=== PATIENT | male | born 1965 | race Caucasian/White ===

== ENCOUNTER 2024-05-20 10:12 | Emergency (ER) | payer OTHER, SELFPAY ==
--- NOTE | ~2024-05-20 | XR_ITS ---
XR chest 1V portable Ordering provider: Dave Taveras MD History: 58 years Male with . COUGH WITH CP FROM COUGHING X7DAYS,FEVER,BODY ACHES . Comparison: March 16, 2002 FINDINGS: MEDIASTINUM: The cardiac silhouette is slightly enlarged. Prominent claus more on the right side. LUNGS: No infiltrates, effusions or pneumothorax. Prominent bronchovascular markings in the left perihilar and both lower lobes which may indicate bron chitis. Early pneumonia is not excluded. OTHER: No free air under the diaphragm. Degenerative changes with levoscoliosis. IMPRESSION: Prominent bronchovascular markings in the lower lobes and perihilar areas which may indicate bronchit is. Follow-up advised. Prominent both claus. No change from previous examination seen Reviewed, dictated and finalized at location A. ENGER RELATIONS REPRESENTATIVE IMPRESSION: Prominent bronchovascular markings in the lower lobes and perihilar areas which may indicate bronchitis. Follow-up advised. Prominent both claus. No change from previous examination seen
[2024-05-20 10:12] VITALS: BP 155/77; PULSE 90; RESP 18; TEMP 36.6; O2SAT 96
--- NOTE | 2024-05-20 10:23 | ED.URI ---
HPI - URI/Sore Throat General Chief Complaint: Upper Respiratory Infection Stated Complaint: upper respiratory Time Seen by Provider: 05/20/24 10:23 Source: patient History of Present Illness HPI Narrative: 58 years old white male came to the ED with productive cough of greenish sputum, getting worse over the last 4 days, started 1 week ago. Patient is healthy otherwise, does not take medicine at home, denying any history of smoking or history of asthma. He denies any fever or chills or shortness of breath or chest pain. positive ill contact in few days ago. Related Data Allergies Allergy/AdvReac Type Severity Reaction Status Date / Time No Known Allergies Allergy Verified 05/20/24 10:26 Review of Systems Review of Systems: All systems reviewed & are unremarkable except as noted in HPI and below Exam Narrative: General appearance: Well-developed, well-nourished Skin: Normal color Head: Normocephalic, nontraumatic Eyes: Clear conjunctiva ENT: Oropharynx normal, ears normal, nose normal Neck: Supple, nontender Chest and respiratory: Airway patent, no respiratory distress, no accessory muscle use Expiratory rhonchi bilaterally Heart: Regular rate/rhythm Abdomen: Soft, nontender, no organomegaly, quiet bowel sounds Vascular: Normal peripheral pulses, normal capillary refill. Musculoskeletal: Normal range of motion, nontender back Neurologic: Alert and oriented ?3, SCHOOL TRAFFIC GUARD is normal as tested, no gross motor deficit Course Vital Signs Vital signs: Vital Signs Temperature 36.6 C 05/20/24 10:12 Pulse Rate 90 05/20/24 10:12 Respiratory Rate 18 05/20/24 10:12 Blood Pressure 155/77 H 05/20/24 10:12 Pulse Oximetry 96 05/20/24 10:12 Oxygen Delivery Room Air 05/20/24 10:12 Temperature 36.6 C 05/20/24 10:12 Pulse Rate 90 05/20/24 10:12 Respiratory Rate 18 05/20/24 10:12 Blood Pressure 155/77 H 05/20/24 10:12 Pulse Oximetry 96 05/20/24 10:12 Oxygen Delivery Room Air 05/20/24 10:12 MDM - URI/Sore Throat MDM Narrative Medical decision making narrative: patient came to the ED with productive cough of green sputum Lab Data Labs: Lab Results 05/20/24 Range/Units 10:24 Influenza A (RT-PCR) Negative (Negative) Influenza B (RT-PCR) Negative (Negative) RSV (RT-PCR) Negative (Negative) SARS-CoV-2 RNA (RT-PCR) Negative (Negative) Imaging Data Radiologist's impression: Impressions Chest X-Ray 05/20/24 11:10 IMPRESSION: Prominent bronchovascular markings in the lower lobes and perihilar areas which may indicate bronchitis. Follow-up advised. Prominent both claus. No change from previous examination seen Discharge Plan Discharge Clinical Impression: Bronchitis Patient Disposition: Home, Self-Care Condition: Stable Instructions: Antibiotic Form, Acute Bronchitis (ED) Additional Instructions: Return if symptoms are worsening , call your family physician for appointment, take Tylenol as as needed for aches and pain, continue home medications. Patient Language: Upper Sorbian Prescriptions: New doxycycline hyclate 100 mg tablet 100 mg PO BID Qty: 20 0RF prednisone 20 mg tablet 40 mg PO DAILY 5 Days Qty: 10 0RF albuterol sulfate [Ventolin HFA] 90 mcg/actuation HFA aerosol inhaler 2 puff inhalation QID PRN (Reason: shortness of breath or wheezing) Qty: 8.5 0RF Follow-up/Referrals: Jaki,MD Reese [Primary Care Provider] -
[2024-05-20 11:01] LABS: SARS-CoV-2 RNA PCR Negative (Negative)
[2024-05-20 11:10] LABS: Influenza A QL RT-PCR Negative (Negative); Influenza B QL RT-PCR Negative (Negative); RSV RNA, RT-PCR Negative (Negative)
[2024-05-20 11:22] VITALS: BP 148/70; PULSE 82; RESP 18; TEMP 36.7; O2SAT 96
--- OUTSIDE RECORDS SUMMARY | 2024-05-26 18:20 | XMS_ITS | Clinical Summary ---
Author Organization [facility] Address [address] [place] [address]. [place], [place] [address] [place] [address] Care Team Providers Care Frame Runner Name Role Phone Reese Pollack MD Primary Care Provider Allergies No known active allergies Medications citalopram 40 MG tablet Take 40 mg by mouth daily. 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 Gender Identity Not on file Sexual Orientation Not on file Last Filed Vital Signs Vital Sign Reading Time Taken Comments Blood Pressure 116/60 02/18/2020 1:15 PM CDT Pulse 51 02/18/2020 1:15 PM CDT Temperature 36 ??C (96.8 ??F) 02/18/2020 1:15 PM CDT Respiratory Rate 20 02/18/2020 1:15 PM CDT Oxygen Saturation 95% 02/18/2020 1:15 PM CDT Inhaled Oxygen Concentration - - Weight 79.4 kg (175 lb) 02/07/2020 11:09 AM CDT Height 175.3 cm (5' 9 ) 02/07/2020 11:09 AM CDT Body Mass Index 25.84 02/07/2020 11:09 AM CDT Plan of Treatment Health Maintenance Due Date Last Done Comments Annual Physical 12/23/1970 DTaP, Tdap and Td Vaccines (1 - Tdap) 12/23/1986 Hepatitis B Vaccines (1 of 3 - 19+ 3-dose series) 12/23/1986 Zoster Vaccines (1 of 2) 12/23/2017 COVID-19 Vaccine (2023- season) 2024 Influenza Adult (#1) 2024 Colorectal Cancer Screening Colonoscopy (10 Years) 02/17/2030 02/18/2020, 02/18/2020 Hepatitis C Completed 02/06/2020, 01/14, 02/06/2020, Additional history exists Meningococcal Vaccine Aged Out No brian jalil eligible based on patient's age to complete this topic Pneumococcal Vaccine: Pediatrics (0 to 5 Years) and At-Risk Patients (6 to 64 Years) Aged Out No longer eligible based on patient's age to complete this topic RSV Immunizations Under 20 Months Aged Out No longer eligible based on patient's age to complete this topic Procedures Procedure Name Priority Date/Time Associated Diagnosis Comments COLONOSCOPY 02/18/2020 12:37 PM CDT from Last 3 Months or Most Recently Relevant to Health Maintenance Results * COLONOSCOPY (02/18/2020 12:37 PM CDT) Nikolas Payton MD GI PROCEDURE ORDERABLES Final Result from Last 3 Months or Most Recently Relevant to Health Maintenance Insurance [facility] Care Teams Frame Runner Relationship Specialty Start Date End Date Reese Pollack MD [address] [place] [phone] PCP - General FAMILY PRACTICE 02/06/20
--- OUTSIDE RECORDS SUMMARY | 2024-05-26 18:20 | XMS_ITS | Encounter Summary ---
Author Organization [facility] Address [address] [place] [address]. [place], [place] [address] [place] [address] Care Team Providers Care Profile Shaper Operator Name Role Phone Reese Pollack MD Primary Care Provider [phone] Encounter Details Date Type Department Care Team (Latest Contact Info) Description 02/22/2022 Travel Social History Tobacco Use Types Packs/Day Years Used Date Smoking Tobacco: Former Cigarettes Q uit: 01/27/2010 Smokeless Tobacco: Never Comments:Quit 10 years ago Alcohol Use Standard Drinks/Week Comments Yes 0 (1 standard drink = 0.6 oz pur e alcohol) social Sex and Gender Information Value Date Recorded Sex Assigned at Not on file 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 No / Unsure 02/22/2022 5:01 PM CDT documented as of this encounter Plan of Treatment Not on file documented as of this encounter Visit Diagnoses Not on filedocumented in this encounter Care Teams Profile Shaper Operator Relationship Specialty Start Date End Date Reese Pollack MD [address] [place] [phone] PCP - General FAMILY PRACTICE 02/06/20 documented as of this encounter
--- OUTSIDE RECORDS SUMMARY | 2024-05-26 18:20 | XMS_ITS | Encounter Summary ---
Author Organization [facility] Address [address] [place] [address]. [place], [place] [id number] [place] [address] Care Team Providers Care Wood Piler Name Role Phone Reese Pollack MD Primary Care Provider [phone] Encounter Details Date Type Department Care Team (Latest Contact Info) Description 02/22/2022 5:07 PM CDT - 02/22/2022 11:59 PM CDT Hospital Encounter [facility] [address] [facility] [place] [address] Yaniv Grimes, EJSSA [address] [place] [phone] Discharge Disposition: Home or Self Care (Routine Discharge) Social History Tobacco Use Types Packs/Day Years Used Date Smoking Tobacco: Former Cigarettes Q uit: 01/27/2010 Smokeless Tobacco: Never Comments:Quit 10 years ago Alcohol Use Standard Drinks/Week Comments Yes 0 (1 standard drink = 0.6 oz pur e alcohol) social Sex and Gender Information Value Date Recorded Sex Assigned at Not on file 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 No / Unsure 02/22/2022 5:01 PM CDT documented as of this encounter Medications at Time of Discharge citalopram 40 MG tablet Take 40 mg by mouth daily. 01/17/2020 documented as of this encounter Plan of Treatment Not on file documented as of this encounter Procedures Procedure Name Priority Date/Time Associated Diagnosis Comments XR SCOLIOSIS Routine 02/22/2022 5:38 PM CDT Kyphoscoliosis documented in this encounter Results * XR SCOLIOSIS (02/22/2022 5:38 PM CDT) Anatomical Region Laterality Modality Spine Radiographic [place] ging 02/23/2022 9:02 AM CDT Impressions 02/23/2022 9:04 AM CDT IMPRESSION: 1) Thoracolumbar scoliosis is similar to previous study of 07/17/2013. Ordered By: YANIV GRIMES Interpreted By: Byron Manzanares MD, 02/23/2022 9:02 AM Narrative 02/23/2022 9:04 AM CDT Examination: XR SCOLIOSIS Exam time: 02/22/2022 5:38 PM Clinical history: Scoliosis Comparison: 07/17/2013 Technique: Survey AP and lateral views of the thoracolumbar spine Findings: The images demonstrate prominent thoracolumbar scoliosis very similar in appearance to 07/17/2013. There is thoracic scoliosis convex to the right and thoracolumbar scoliosis convex to the left. There is no definite evidence of underlying thoracic or lumbar vertebral body anomaly. No significant paraspinous soft tissue abnormality. No focal pulmonary parenchymal opacity or pleural effusion. Nonobstructive bowel gas pattern. Procedure Note Byron Manzanares MD - 02/23/2022 Examination: XR SCOLIOSIS Exam time: 02/22/2022 5:38 PM Clinical history: Scoliosis Comparison: 07/17/2013 Technique: Survey AP and lateral views of the thoracolumbar spine Findings: The images demonstrate prominent thoracolumbar scoliosis verysimilar in appearance to 07/17/2013. There is thoracic scoliosis convex tothe right and thoracolumbar scoliosis convex to the left. There is nodefinite evidence of underlying thoracic or lumbar vertebral body anomaly.No significant paraspinous soft tissue abnormality. No focal pulmonary parenchymal opacity or pleural effusion. Nonobstructivebowel gas pattern. IMPRESSION: 1) Thoracolumbar scoliosis is similar to previous study of 07/17/2013. Ordered By: YANIV GRIMES Interpreted By: Byron Manzanares MD, 02/23/2022 9:02 AM us [facility] Final Result documented in this encounter Visit Diagnoses Diagnosis Kyphoscoliosis Scoliosis (and kyphoscoliosis), idiopathic documented in this encounter Care Teams Wood Piler Relationship Specialty Start Date End Date Reese Pollack MD [address] [place] [phone] PCP - General FAMILY PRACTICE 02/06/20 documented as of this encounter
--- OUTSIDE RECORDS SUMMARY | 2024-05-26 18:20 | XMS_ITS | Encounter Summary ---
Author Organization [facility] Address [address] [place] [address]. [place], [place] [address] [place] [address] Care Team Providers Care Neuropsychology Director Name Role Phone Reese Pollack MD Primary Care Provider Encounter Details Date Type Department Care Team (Latest Contact Info) Description 02/18/2020 Travel Social History Tobacco Use Types Packs/Day Years Used Date Smoking Tobacco: Former Cigarettes Q uit: 01/27/2010 Smokeless Tobacco: Never Comments:Quit 10 years ago Alcohol Use Standard Drinks/Week Comments Yes 0 (1 standard drink = 0.6 oz pur e alcohol) social Sex and Gender Information Value Date Recorded Sex Assigned at Not on file 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 No / Unsure 02/18/2020 11:00 AM CDT documented as of this encounter Plan of Treatment Not on file documented as of this encounter Visit Diagnoses Not on filedocumented in this encounter Care Teams Neuropsychology Director Relationship Specialty Start Date End Date Reese Pollack MD [address] [place] [phone] PCP - General FAMILY PRACTICE 02/06/20 documented as of this encounter
--- OUTSIDE RECORDS SUMMARY | 2024-05-26 18:20 | XMS_ITS | Encounter Summary ---
Author Organization [facility] Address [address] [place] [address]. [place] [address] [place] [address] Care Team Providers Care Food And Beverage Director Name Role Phone Reese Pollack MD Primary Care Provider [phone]- [phone] Reason for Visit * Auth/Cert Specialty Diagnoses / Procedures Referred By Claudia cee Referred To Contact Diagnoses SCREENING COLONOSCOPY Procedures COLONOSCOPY DIAGNOSTIC WITH/WITHOUT SPECIMEN BRUSH/WASH Referral ID Status Reason Start Date Expiration Date Visits Re quested Visits Authorized [id number] 1 1 Encounter Details Date Type Department Care Team (Late st Contact Info) Description 02/18/2020 12:16 PM CDT - 02/18/2020 12:50 PM CDT Surgery [place] [address] [place] [address] Nikolas Rangel MD [address] [place] [phone] COLONOSCOPY WITH POLYPECTOMY Surgery Details Date/Time Status Location OR Service Patient Class Case Class Case Type Trauma Case? 02/18/2020 12:16 PM Posted [facility] OR Endo Gastroenterology Short Stay/Outpa tient Surgery No Panel 1 Procedure LRB Anes Op Region Wound Class Comments COLONOSCOPY WITH POLYPECTOMY N/A Monitor Anesthesia Care Colon Clean Contaminated Surgeon Surgeon Role Service Panel Nikolas Rangel MD Primary Gastroenterology 1 documented in this encounter Social History Tobacco Use Types Packs/Day Years Used Date Smoking Tobacco: Former Cigarettes Q uit: 01/27/2010 Smokeless Tobacco: Never Comments:Quit 10 years ago Alcohol Use Standard Drinks/Week Comments Yes 0 (1 standard drink = 0.6 oz pur e alcohol) social Sex and Gender Information Value Date Recorded Sex Assigned at Not on file 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 No / Unsure 02/18/2020 11:00 AM CDT documented as of this encounter Last Filed Vital Signs Vital Sign Reading Time Taken Comments Blood Pressure 110/67 02/18/2020 12:45 PM CDT Pulse 63 02/18/2020 12:45 PM CDT Temperature 36 ??C (96.8 ??F) 02/18/2020 12:45 PM CDT Respiratory Rate 20 02/18/2020 12:45 PM CDT Oxygen Saturation 97% 02/18/2020 12:45 PM CDT Inhaled Oxygen Concentration - - Weight 79.4 kg (175 lb) 02/07/2020 11:09 AM CDT Height 175.3 cm (5' 9 ) 02/07/2020 11:09 AM CDT Body Mass Index 25.84 02/07/2020 11:09 AM CDT documented in this encounter Discharge Instructions * Attachments The following attachments cannot be sent through Care Everywhere. * Colonoscopy Discharge Instructions (Liberian) * Moderate Sedation in Adults Discharge Instructions (Liberian) documented in this encounter Medications at Time of Discharge citalopram 40 MG tablet Take 40 mg by mouth daily. 01/17/2020 documented as of this encounter Plan of Treatment Not on file documented as of this encounter Procedures Procedure Name Priority Date/Time Associated Diagnosis Comments COLONOSCOPY 02/18/2020 12:37 PM CDT COLONOSCOPY DIAGNOSTIC WITH/WITHOUT SPECIMEN BRUSH/WASH 02/18/2020 12:14 PM CDT SCREENING COLONOSCOPY PATHOLOGY Routine 02/18/2020 12:00 AM CDT documented in this encounter Results * COLONOSCOPY (02/18/2020 12:37 PM CDT) us Nikolas Rangel MD GI PROCEDURE ORDERABLES Final Result * Pathology (02/18/2020 12:00 AM CDT) PATHOLOGY [facility] ? Department of Laboratory Medicine ?[address] ?[place] [address] ? , extension [phone] ? Pathology Report ? Surgical Pathology Report Name: ADIEL OTERO ? Specimen #: [id number] Age: 8 1965 (Age: 54) ?Location: [facility] Sex: M ?Procedure Date: 02/18/2020 Hospital #: [id number] ?Date Received: 02/19/2020 Date Reported: 02/20/2020 Provider: INKOLAS RANGEL MD Source: A: Colon, ascending, polyp B: Colon, descending, polyp Clinical History: Screening colonoscopy. Gross Description: Received in two parts: A) Received in formalin, labeled with a patient label and as ascending colon polyp is a 0.1-0.2 cm piece of hebert tissue which is entirely submitted in cassette A1. B) Received in formalin, labeled with a patient label and as descending colon polyp is a 0.3 cm piece of hebert tissue which is entirely submitted in cassette B1. FINAL DIAGNOSIS: A) COLON, ASCENDING POLYP, BIOPSY: ? - POLYPOID FRAGMENT OF BENIGN COLONIC MUCOSA. B) COLON, DESCENDING POLYP, BIOPSY: ? - TUBULAR ADENOMA. Electronicall y Signed Out ? Wiliam Castillo M.D. [facility] Tissue specimen (specimen) COLON STRUCTURE / Unknown 02/18/2020 12:30 PM CDT Tissue specimen (specimen) COLON STRUCTURE / Unknown 02/18/2020 12:32 PM CDT us Nikolas Rangel MD PATHOLOGY/CYTOLOGY ORDERABLES Final Result [facility] [address] [place] [address], [id number] documented in this encounter Visit Diagnoses Not on filedocumented in this encounter Administered Medications Inactive Administered Medications - up to 3 most recent administrations Medication Order MAR Action Action Date Dose Rate Site lactated ringers infusion at 10 mL/hr, Intravenous, Continuous, Starting on 02/18/20 at 1130, Until Tu02/18/20 at 1527, Infuse at TKO rate, Pre-Op New Bag 02/18/2020 11:09 AM CDT 10 mL/hr documented in this encounter Active and Recently Administered Medications Times are shown in CDT. Continuous Medication Order 02/16/2020 02/17/2020 02/18/2020 lactated ringers infusion at 10 mL/hr, Intravenous, Continuous, Starting on 02/18/20 at 1130, Until 02/18/20 at 1527, Infuse at TKO rate, Pre-Op 1109 (New Bag - Prov ider: Tobias Collazo RN)1240 (Anesthesia Volume Adjustment - Provider: sIabel Ray CRNA)1315 (Infusion Stop Time - Provider: Angela Ballard RN) documented in this encounter Care Teams Food And Beverage Director Relationship Specialty Start Date End Date Reese Pollack MD [address] [place] [phone] PCP - General FAMILY PRACTICE 02/06/20 documented as of this encounter
--- OUTSIDE RECORDS SUMMARY | 2024-05-26 18:21 | XMS_ITS | Encounter Summary ---
Author Organization [facility] Address [address] [place] [address]. 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
--- OUTSIDE RECORDS SUMMARY | 2024-05-26 18:21 | XMS_ITS | Encounter Summary ---
Author Organization [facility] Address [address] [place] [address]. 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 No / Unsure 02/06/2020 6:56 AM CDT documented as of this encounter Plan of Treatment Not on file documented as of this encounter Visit Diagnoses Not on filedocumented in this encounter Care Teams Kindergarten Prep Teacher Relationship Specialty Start Date End Date Reese Pollack MD [address] [place] [phone] PCP - General FAMILY PRACTICE 02/06/20 documented as of this encounter
--- OUTSIDE RECORDS SUMMARY | 2024-05-26 18:21 | XMS_ITS | Encounter Summary ---
Author Organization [facility] Address [address] [place] [address]. [place], [place] [phone] [place] [address] Care Team Providers Care Legal Records Clerk Name Role Phone Reese Pollack MD Primary Care Provider Encounter Details Date Type Department Care Team (Latest Contact Info) Description 02/15/2020 Travel Social History Tobacco Use Types Packs/Day Years Used Date Smoking Tobacco: Former Cigarettes Q uit: 01/27/2010 Smokeless Tobacco: Never Comments:Quit 10 years ago Alcohol Use Standard Drinks/Week Comments Yes 0 (1 standard drink = 0.6 oz pur e alcohol) social Sex and Gender Information Value Date Recorded Sex Assigned at Not on file 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 No / Unsure 02/15/2020 9:22 AM CDT documented as of this encounter Plan of Treatment Not on file documented as of this encounter Visit Diagnoses Not on filedocumented in this encounter Additional Health Concerns Infection Onset Date Last Indicated Resolved Time COVID-19 Rule Out 02/15/2020 02/15/2020 02/17/2020 6:00 AM CDT documented as of this encounter Care Teams Legal Records Clerk Relationship Specialty Start Date End Date Reese Pollack MD [address] [place] [phone] PCP - General FAMILY PRACTICE 02/06/20 documented as of this encounter
--- OUTSIDE RECORDS SUMMARY | 2024-05-26 18:21 | XMS_ITS | Encounter Summary ---
Author Organization [facility] Address [facility] [place] [address] [place] [address] Care Team Providers Care Junior Project Coordinator Name Role Phone Unavailable Primary Care Provider Unavailabl e Encounter Details Date Type Department Care Team (Late st Contact Info) Description 05/10/[address] 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
--- OUTSIDE RECORDS SUMMARY | 2024-05-26 18:21 | XMS_ITS | Encounter Summary ---
Author Organization [facility] Address [address] [place] [address]. [place] [address] [place] [address] Care Team Providers Care Photogrammetric Technician Name Role Phone Reese Pollack MD Primary Care Provider [phone] Reason for Visit * Auth/Cert Specialty Diagnoses / Procedures Referred By Claudia cee Referred To Contact Diagnoses SCREENING COLONOSCOPY Procedures COLONOSCOPY DIAGNOSTIC WITH/WITHOUT SPECIMEN BRUSH/WASH Referral ID Status Reason Start Date Expiration Date Visits Re quested Visits Authorized [id number] 1 1 Encounter Details Date Type Department Care Team (Late st Contact Info) Description 02/18/2020 12:19 PM CDT Anesthesia Event [facility] [address] [place] [address] [place] [address] Billy Dhaliwal MD [address] [place], [place] [id number] Isabel Ray, ADDICTION COUNSELOR [address] [place] [address] Anesthesia Record Procedure Summary Procedure Name Responsible Anesthesiologist Anesthesia Start Time Anesthesia Stop Time COLONOSCOPY WITH POLYPECTOMY (Colon) Billy Dhaliwal MD 02/18/20 1219 02/18/20 1245 Events Date Time Event Comment 02/18/2020 1210 1219 An Start Patient ID and consent checked and patient reassessed. 1219 An Start Data 1221 Face Mask Applied 1223 Anesthesia Ready 1241 an stop data 1245 Post Anesthetic Care Handoff I completed my handoff to the receiving nurse during which we: 1. Identified the patient 2. Identified the responsible provider 3. Reviewed the pertinent medical history 4. Discussed the surgical course 5. Reviewed intra-op anesthesia management and issues during anesthesia 6. Set expectations for post-procedure period 7. Allowed opportunity for questions and acknowledgement of understanding. 1245 An Stop Meds Name Total propofol (DIPRIVAN) 500 mg/50 mL injecti on 100 mg propofol (DIPRIVAN) 500 mg/50 mL injecti on 91.71 mg lactated ringers infusion 800 mL * Agents Name N2O Ancillary O2 * Blood No blood administrations on file. Lines, Drains, and Airways Type Details Placement Removal Peripheral IV Placement Date: 11/01; Placement Time: 1108; Placed Outside of This Facility?: No; Size: 20 G; Orientation: Right; Location: Hand; Site Prep: Chlorhexidine; Local Anesthetic: None; Insertion attempts: 1; Ultrasound-guided Placement?: No; Patient Tolerance: Tolerated well; Removal Date: 02/18/20; Removal Time: 1315; Removal Reason: Patient Discharged 02/18/20 1108 by Tobias Collazo RN 02/18/20 1315 by Angela Ortega RN documented in this encounter Social History Tobacco Use Types Packs/Day Years Used Date Smoking Tobacco: Former Cigarettes Q uit: 01/27/2010 Smokeless Tobacco: Never Comments:Quit 10 years ago Alcohol Use Standard Drinks/Week Comments Yes 0 (1 standard drink = 0.6 oz pur e alcohol) social Sex and Gender Information Value Date Recorded Sex Assigned at Not on file 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 No / Unsure 02/18/2020 11:00 AM CDT documented as of this encounter Progress Notes * Billy Dhaliwal MD - 02/18/2020 1:13 PM CDT Addendum created 02/18/20 1313 by Billy Dhaliwal MD Attestation recorded in Intraprocedure, Intraprocedure Attestations filed documented in this encounter OR Notes * Anesthesia Postprocedure Evaluation - Billy Dhaliwal MD - 02/18/2020 1:04 PM CDT Anesthesia Post-op Note [facility] Procedure(s): COLONOSCOPY WITH POLYPECTOMY (N/A ) Anesthesia type: MAC Vitals: 02/18/20 1245 BP: 110/67 Vitals: 02/18/20 1245 Pulse: 63 Vitals: 02/18/20 1245 Resp: 20 Vitals: 02/18/20 1245 Temp: 36 ??C Vitals: 02/18/20 1245 SpO2: 97% Patient Location: Phase II/Outpatient Level of Consciousness: awake, alert and oriented Pain Management: adequate analgesia Airway Patency: patent Respiratory Status: spontaneous ventilation and acceptable Cardiovascular Status: acceptable, stable and hemodynamically stable Post-Op Nausea: none Postoperative Hydration: euvolemic Complications: no anesthesia complication * Anesthesia Preprocedure Evaluation - Billy Dhaliwal MD - 02/14/2020 11:44 AM CDT Anesthesia ROS/MED History Reviewed: Patient summary , Family history anesthesia, Anesthesia history , Medications Pre-Anesthetic State: alert, awake and responds appropriately Pulmonary neg pulmonary ROS Cardiovascular neg cardio ROS Exercise tolerance:good Neuro/Psych (+) psychiatric problem, (anxiety) GI/Hepatic/Renal neg GI/hepatic/renal ROS Endo/Other neg endo/other ROS Physical Evaluation Airway Mallampati: II TM Distance: >3 FB Neck ROM: normal Comment: Full grant Dental No notable dental history Pulmonary Pulmonary exam normal Breath sounds clear to auscultation Cardiovascular Rhythm: regular Rate: normal Cardiovascular exam normal Anesthesia Plan ASA 2 Intravenous Induction Anesthesia type: MAC Informed Consent Anesthetic plan and risks discussed with patient of whom consent was obtained. . documented in this encounter Plan of Treatment Not on file documented as of this encounter Visit Diagnoses Not on filedocumented in this encounter Administered Medications Inactive Administered Medications - up to 3 most recent administrations Medication Order MAR Action Action Date Dose Rate Site propofol (DIPRIVAN) IV bolus PRN, Starting on Mon02/18/20 at 1222, Until Mon02/18/20 at 1245, Anesthesia Intra-Op Given 02/18/2020 12:23 PM CDT 40 mg Given 02/18/2020 12:22 PM CDT 60 mg propofol (DIPRIVAN) IV bolus Intravenous, Continuous PRN, Starting on Mon02/18/20 at 1222, Until Mon02/18/20 at 1245, Anesthesia Intra-Op Rate/Dose Change 02/18/2020 12:28 PM CDT 75 mcg/kg/min 35.7 mL/hr Rate/Dose Change 02/18/2020 12:25 PM CDT 85 mcg/kg/min 40. 5 mL/hr New Bag 02/18/2020 12:22 PM CDT 100 mcg/kg/min 47.6 mL/ hr documented in this encounter Care Teams Photogrammetric Technician Relationship Specialty Start Date End Date Reese Pollack MD [address] [place] [phone] PCP - General FAMILY PRACTICE 02/06/20 documented as of this encounter
--- OUTSIDE RECORDS SUMMARY | 2024-05-26 18:21 | XMS_ITS | Encounter Summary ---
Author Organization [facility] Address [address] [place] [address]. [place] [address] [place] [address] Care Team Providers Care Undercover Agent Name Role Phone Reese Pollack MD Primary Care Provider [phone] Encounter Details Date Type Department Care Team (Late st Contact Info) Description 02/15/[address] 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 No / Unsure 02/07/2020 11:09 AM CDT documented as of this encounter Plan of Treatment Not on file documented as of this encounter Results * PRE-SURGICAL/PRE-PROCEDURE CORONAVIRUS (COVID 19) (02/15/2020 9:48 AM CDT) CORONAVIRUS SARS COV 2 PCR (RESP) NOT DETECTED NOT DETECTED 02/17/2020 6:00 AM CDT [facility] Comment: A Not Detected (negative) test result for this test means that SARS- CoV-2 RNA was not present in the specimen above the limit of detection. A negative result does not rule out the possibility of COVID-19 and should not be used as the sole basis for treatment or patient management decisions. ??If COVID-19 is still suspected, based on exposure history together with other clinical findings, re-testing should be considered in consultation with public health authorities. Laboratory test results should always be considered in the context of clinical observations and epidemiological data in making a final diagnosis and patient management decisions. Please review the Fact Sheets and FDA authorized labeling available for health care providers and patients using the following websites: https://www.[employer]/home/Covid-19/HCP/[facility]/fact- sheet.html https://www.[employer]/home/Covid-19/Patients/ [facility]/fact-sheet.html This test has been authorized by the FDA under an Emergency Use Authorization (EUA) for use by authorized laboratories. Due to the current public health emergency, [facility] is receiving a high volume of samples from a wide variety of swabs and media for COVID-19 testing. In order to serve patients during this public health crisis, samples from appropriate clinical sources are being tested. Negative test results derived from specimens received in non-commercially manufactured viral collection and transport media, or in media and sample collection kits not yet authorized by FDA for COVID-19 testing should be cautiously evaluated and the patient potentially subjected to extra precautions such as additional clinical monitoring, including collection of an additional specimen. Methodology: ??Nucleic Acid Amplification Test (NAAT) includes PCR or TMA Additional information about COVID-19 can be found at the [facility] website: www.[employer]/Covid19. Test performed at [facility] [address] ??[id number] Director: JULY VANCE DO,MPH FIRST TEST YES 02/15/2020 9:34 AM CDT [facility] EMPLOYED IN HEALTHCARE NO 02/15/2020 9:34 AM CDT [facility] SYMPTOMATIC DEFINED BY CDC NO 02/15/2020 9:34 AM CDT [facility] DATE OF SYMPTOM ONSET UNKNOWN 02/15/2020 9:52 AM CDT [facility] HOSPITALIZATION STATUS NO 02/15/2020 9:34 AM CDT [facility] PATIENT IN ICU NO 02/15/2020 9:34 AM CDT [facility] NO 02/15/2020 9:34 AM CDT [facility] NOT 02/15/2020 9:52 AM CDT [facility] PATIENT'S RACE WHITE OR 02/15/2020 9:34 AM CDT [facility] ETHNICITY NONHISPANIC 02/15/2020 9:34 AM CDT [facility] SOURCE (QST) NASOPHARYNGEAL SWAB 02/15/2020 9:34 AM CDT [facility] NASOPHARYNGEAL SWAB / Unknown 02/15/2020 9:48 AM CDT us Nikolas Payton MD MICROBIOLOGY - GENERAL ORDERA BLES Final Result [facility] [address] [place] [address], [facility] [address] documented in this encounter Visit Diagnoses Diagnosis Pre-operative laboratory examination- Primary Pre-procedural laboratory examination documented in this encounter Additional Health Concerns Infection Onset Date Last Indicated Resolved Time COVID-19 Rule Out 02/15/2020 02/15/2020 02/17/2020 6:00 AM CDT documented as of this encounter Care Teams Undercover Agent Relationship Specialty Start Date End Date Reese Pollack MD [address] [place] [phone] PCP - General FAMILY PRACTICE 02/06/20 documented as of this encounter
--- OUTSIDE RECORDS SUMMARY | 2024-05-26 18:21 | XMS_ITS | Encounter Summary ---
Author Organization [facility] Address [address] [place] [address]. [id number] Care Team Providers Care Motor And Generator Brush Maker Name Role Phone Reese Pollack MD Primary Care Provider [phone] Reason for Visit * Auth/Cert Specialty Diagnoses / Procedures Referred By Claudia cee Referred To Contact Diagnoses SCREENING COLONOSCOPY Procedures COLONOSCOPY DIAGNOSTIC WITH/WITHOUT SPECIMEN BRUSH/WASH Referral ID Status Reason Start Date Expiration Date Visits Re quested Visits Authorized [id number] 1 1 Encounter Details Date Type Department Care Team (Late st Contact Info) Description 02/18/2020 10:53 AM CDT - 02/18/2020 1:[address] PM [address] Hospital En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 * Colonoscopy Discharge Instructions (Malaysian) * Moderate Sedation in Adults Discharge Instructions (Malaysian) documented in this encounter Medications at Time [...] ? Department of Laboratory Medicine ?[address] ? [address] ? , extension [phone] ? Pathology Report ? Surgical Pathology Report Name: OTERO ADIEL Lubin ? Specimen #: [id number] Age: 8 1965 (Age: 54) ?[facility] ?Procedure Date: 02/18/2020 Hospital #: [id number] ?Date Received: 02/19/2020 Date Reported: 02/20/2020 Provider: NIKOLAS RANGEL MD Source: A: Colon, ascending, polyp [...] y Signed Out ? Wiliam Castillo M.D. [facility] Tissue specimen (specimen) COLON STRUCTURE / Unknown 02/18/2020 12:30 PM CDT Tissue specimen (specimen) COLON STRUCTURE / Unknown 02/18/2020 12:32 PM CDT Nikolas Rangel MD PATHOLOGY/CYTOLOGY ORDERABLES Final Result [facility] [address] [place] [address], [id number] documented in this encounter Visit Diagnoses Not on filedocumented in this encounter Administered Medications Inactive Administered Medications - up to 3 most recent administrations Medication Order MAR Action Action Date Dose Rate Site lactated ringers infusion at 10 mL/hr, Intravenous, Continuous, Starting on Mon02/18/20 at 1130, Until Tu02/18/20 at 1527, Infuse [...] 1109 (New Bag - Prov ider: Tobias Collazo, RN)1240 (Anesthesia Volume Adjustment - Provider: Isabel Ray CRNA)1315 (Infusion Stop Time - Provider: Angela Ballard, KAVITA) documented in this encounter Care Teams Motor And Generator Brush Maker Relationship Specialty Start Date End Date Reese Pollack MD [address] [place] [phone] PCP - General FAMILY PRACTICE 02/06/20 documented as of this encounter
--- OUTSIDE RECORDS SUMMARY | 2024-05-26 18:21 | XMS_ITS | Encounter Summary ---
Author Organization [facility] Address [address] [place] [address]. 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
--- OUTSIDE RECORDS SUMMARY | 2024-05-26 18:21 | XMS_ITS | Encounter Summary ---
Author Organization [facility] Address [address] [place] [address]. 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
--- OUTSIDE RECORDS SUMMARY | 2024-05-26 18:21 | XMS_ITS | Encounter Summary ---
Author Organization [facility] Address [address] [place] [address]. [place] [address] [place] [address] Care Team Providers Care Fermentation Scientist Name Role Phone Unavailable Primary Care Provider Unavailabl e Encounter Details Date Type Department Care Team (Late st Contact Info) Description 07/17/[address] 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
--- OUTSIDE RECORDS SUMMARY | 2024-05-26 18:21 | XMS_ITS | Encounter Summary ---
Author Organization [facility] Address [address] [place] [address]. 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 No / Unsure 02/07/2020 11:09 AM CDT documented as of this encounter Plan of Treatment Not on file documented as of this encounter Results * (ABNORMAL) MISCELLANEOUS LAB TEST (02/06/2020 7:48 AM CDT) TEST NAME: [id number] LIVER FIBROSIS FIBROSURE 02/06/2020 7:53 AM CDT [facility] SPECIMEN TYPE SERUM 02/06/2020 7:53 AM CDT [facility] TEST RESULT: Flexitest 1(A) 02/14/2020 3:38 PM CDT [facility] KIMI FORTE Comment: Flexitest 1 TESTS TYCELOP-IRUUR-BHL RANGE Fibrosis Score ? 0.37 ?? Fibrosis Stage ?F1-F2 ?? Fibrosis Interpretation ?REPORT ?? minimal fibrosis Fibro Test Score (f) ??Metavir Score f>=0 and f<=0.21 : F0 (no fibrosis) f>0.21 and f<=0.27 : F0-F1 (no fibrosis) f>0.27 and f<=0.31 : F1 (minimal fibrosis) f>0.31 and f<=0.48 : F1-F2 (minimal fibrosis) f>0.48 and f<=0.58 : F2 (moderate fibrosis) f>0.58 and f<=0.72 : F3 (advanced fibrosis) f>0.72 and f<=0.74 : F3-F4 (advanced fibrosis) f>0.74 and f<=1.00 : F4 (severe fibrosis) Necroinflammat Act Score ? 0.76 ?? Necroinflammat Act Grade ? A3 ?? Necroinflammat Interp ?REPORT ?? severe activity ActiTest Score (a) ?Metavir Score a>=0 and a<=0.17 : A0 (no activity) a>0.17 and a<=0.29 : A0-A1 (no activity) a>0.29 and a<=0.36 : A1 (minimal activity) a>0.36 and a<=0.52 : A1-A2 (minimal activity) a>0.52 and a<=0.60 : A2 (significant activity) a>0.60 and a<=0.62 : A2-A3 (significant activity) a>0.62 and a<=1.00 : A3 (severe activity) Wpdeh-4-Vvdyyabxrjzao ? 163 ?? mg/dL 106-279 Haptoglobin ?39 L mg/dL 43-212 Apolipoprotein A1 ? 138 ?? mg/dL 94-176 Total Bilirubin ? 0.5 ?? mg/dL 0.2-1.2 GGT ?53 ?? U/L 3-95 ALT ? 157 H U/L 9-46 Reference ID ?[id number] ?? Footnote ? REPORT ?? The reliability of results is dependent on compliance with the preanalytical and analytical conditions recommended by [employer]. The tests have to be deferred for: acute hemolysis, acute hepatitis, acute inflammation, extra hepatic cholestasis. The advice of a specialist should be sought for interpretation in chronic hemolysis and Gilbert's syndrome. The test interpretation is not validated in liver transplant patients. Isolated extreme values of one of the components should lead to caution in interpreting the results. In case of discordance between a biopsy result and a test, it is recommended to seek the advice of a specialist. The causes of these discordances could be due to a flaw of the test or to a flaw in the biopsy: i.e. a liver biopsy has a 33% variability rate for one fibrosis stage. FibroTest is interpretable for chronic hepatitis B and C, alcoholic and non alcoholic steatosis. ActiTest is interpretable for chronic hepatitis B and C. The performance characteristics have been determined by [employer], [place]. It has not been cleared or approved by the U.S. Food and Drug Administration. Performance characteristics refer to the analytical performance of the test. [employer], the associated logo, CIHI and all associated [employer] bishop are the registered trademarks of [employer]. All third libertarian bishop - (R) and (TM) - are the property of their respective owners. (C) 1445-3602 [employer]. All rights reserved. Test performed by [employer] ? [id number], ? [place] [address] ? Ground Instructor Advanced: Crystal Boston MD,PHD,OZZIE Test Reported by [facility] [employer] [place], [address] [place] [address] Ward Schwartz M.D., Ph.D., Director of Laboratories , [place] [id number] 02/06/2020 7:48 AM CDT Jonathan Owens MD LABORATORY Final Result Performing Organization Address City/State/[facility] de Phone Number [facility] [address] [address], [place] [phone] [facility] [address] [place] [address], [place] [phone] * HEP C VIRAL RNA GENOTYPE, LIPA (02/06/2020 7:48 AM CDT) [facility] HEPATITIS C VIRAL RNA GENOTYPE 2 02/12/2020 9:38 PM CDT [facility] RIVERMIRNA ANTOINE Comment: The method used in this test is RT-PCR and reverse hybridization (Line Probe) of the 5' UTR and core region of the HCV genome. The analytical performance characteristics of this assay have been determined by [employer] [place], [place]. ??The modifications have not been cleared or approved by the FDA. ??This assay has been validated pursuant to the CLIA regulations and is used for clinical purposes. For additional information, please refer to http://education.Chomp/faq/HCVGenotypin (This link is being provided for informational/ educational purposes only.) Test Performed by [employer] [facility], [employer] [place], [address] [place] [address] Ward Schwartz M.D., Ph.D., Director of Laboratories , CLIA [id number] 02/06/2020 7:48 AM CDT Jonathan Owens MD LABORATORY Final Result Performing Organization Address City/[facility]/ZIP Co de Phone Number [facility] [place] [phone] [place], [place] , [place] [phone] * (ABNORMAL) HEPATITIS B SURFACE ANTIBODY (02/06/2020 7:48 AM CDT) HEP B SURFACE AB <3.1(L) >9.9 MIU/ML 02/06/2020 8:29 PM CDT [facility] Comment:INDIVIDUAL IS CONSID ERED NOT IMMUNE TO HBV INFECTION. 02/06/2020 7:48 AM CDT Jonathan Owens MD LABORATORY Final Result Performing Organization Address City/[facility]/ZIP Co de Phone Number [facility] [address] [place], [place] [address], [phone] * HEPATITIS A ANTIBODY (02/06/2020 7:48 AM CDT) HEPATITIS A TOTAL AB Nonreactive Nonreactive 02/09/2020 8:05 PM CDT [facility] [place] Comment: For additional information, please refer to https://education.Dots ,LLC/faq/HYE787 (This link is being provided for informational/ educational purposes only.) COMMENT REPORT 02/09/2020 8:05 PM CDT [facility] [place] Comment: Not indicated Test Performed by [facility]ema Parmar, [employer] [facility], [address] [place] [address] Ward Schwartz M.D., Ph.D., Director of Laboratories , CLIA [id number] 02/06/2020 7:48 AM CDT Jonathan Owens MD LABORATORY Final Result Performing Organization Address [facility] Co de Phone Number [facility] [address] [place], [place] , [place] [phone] * CRYOGLOBULIN QUALITATIVE (02/06/2020 7:48 AM CDT) CRYOGLOBULIN QL S/P/B Negative Negative 02/13/2020 1:35 AM CDT [facility] DAVONFRANCI FORTE Comment: The Cryocrit is primarily intended for following a patient with previously defined and quantitated cryoglobulins. The cryocrit may consist of cryoglobulins, fibrins, complement, or mixtures of these. If not previously characterized, consider ordering test code 82288, Cryoglobulin Screen with Reflex to Cryoglobulin Profile, Serum. Test Performed by [employer], [employer], [address] [place] [address] Ward Schwartz M.D., Ph.D., Director of Laboratories , CLIA [id number] % CRYOCRIT END OF REPORT 02/13/2020 1:35 AM CDT [facility] DAVONFRANCI SOTOSusi 02/06/2020 7:48 AM CDT Jonathan Owens MD LABORATORY Final Result Performing Organization Address City/[facility]/ZIP Co de Phone Number [facility] [address] [place], [place] , [place] [phone] * IRON SATURATION PNL (FE/TIBC/SAT) (02/06/2020 7:48 AM CDT) IRON 144 65 - 175 MCG/DL 02/06/2020 8:59 AM CDT [facility] IRON BINDING CAPACITY 328 250 - 450 MCG/DL 02/06/2020 8:59 AM CDT [facility] IRON SATURATION 44 % 0 8:59 AM CDT [facility] Comment:REFERENCE RANGE NOT ESTABLISHED 02/06/2020 7:48 AM CDT Jonathan Owens MD LABORATORY Final Result [facility] [address] [place] [address], [place] [phone] * PRQJI-4-CPULLZIIYIC TOTAL (02/06/2020 7:48 AM CDT) O-0-DEEVOZCVTCK QUANT 132 83 - 199 mg/dL 02/13/2020 12:30 PM CDT [facility] VIRGINIE ANTOINE Comment: Test Performed by [employer], [employer], [address] [place] [address] Ward Schwartz M.D., Ph.D., Director of Laboratories , [facility] [id number] 02/06/2020 7:48 AM CDT Jonathan Owens MD LABORATORY Final Result Performing Organization Address [facility] Co de Phone Number [facility] [address] [address], [place] [phone] * ANTINUCLEAR ANTIBODY WI RFX (02/06/2020 7:48 AM CDT) JARROD 0.3 02/07/2020 11:48 AM CDT [facility] Comment: NEGATIVE: <0.7 RATIO JARROD PROFILE AND TITER NOT PERFORMED THE JARROD SCREEN TEST FOR THE FOLLOWING ANTIBODIES: SSA1 (RO), SSB1 (LA), MARIA, SCL70, JO1, CENTROMERE, CUSTOMER TRAINER HISTONE MUST BE ORDERED SEPARATELY DNA (DS) ANTIBODY <0.8 IU/ML 020 11:48 AM CDT [facility] Comment: NEGATIVE: <10 IU/mL EQUIVOCAL: 10 to 15 IU/mL POSITIVE: >15 IU/mL THIS QUANTITATIVE ASSAY IS CALIBRATED TO THE [employer]'S WO/80 STANDARD. THE LEVEL OF dsDNA AUTOANTIBODY GERERALLY CORRELATES WITH THE LEVEL OF DISEASE ACTIVITY IN SYSTEMIC LUPUS ERYTHMATOSUS 02/06/2020 7:48 AM CDT us Jonathan Owens MD LABORATORY Final Result Performing Organization Address City/[facility]/ZIP Co de Phone Number [facility] [address] [place] [address], [place] [phone] * FERRITIN (02/06/2020 7:48 AM CDT) FERRITIN 257.9 26 - 388 NG/ML 02/06/2020 8:31 AM CDT [facility] 02/06/2020 7:48 AM CDT us Jonathan Owens MD LABORATORY Final Result Performing Organization Address [facility] Co de Phone Number [facility] [address] [place] [address], * THYROID STIM HORMONE, TSH (02/06/2020 7:48 AM CDT) TSH 1.590 0.358 - 3.740 uIU/ML 02/06/2020 8:31 AM CDT [facility] 02/06/2020 7:48 AM CDT us Jonathan Owens MD LABORATORY Final Result Performing Organization Address [facility] Co de Phone Number [facility] [address] [place] [phone], * PARTIAL THROMBOPLASTIN TIME,PTT (02/06/2020 7:48 AM CDT) PTT 34.3 25.1 - 36.5 SEC 02/06/2020 8:23 AM CDT [facility] Comment:THERAPEUTIC RANGE: 4 6.2-77.0 SEC 02/06/2020 7:48 AM CDT us Jonathan Owens MD LABORATORY Final Result Performing Organization Address City/[facility]/ZIP Co de Phone Number [facility] [address] [place] [address], [place] [phone] * PROTIME/INR, VENOUS (02/06/2020 7:48 AM CDT) Pathologist [facility] PROTIME 11.5 9.4 - 12.5 SEC 02/06/2020 8:23 AM CDT [facility] INR 1.0 0.9 - 1.1 02/06/2020 8:23 AM CDT [facility] 02/06/2020 7:48 AM CDT us Jonathan Owens MD LABORATORY Final Result Performing Organization Address [facility] Co de Phone Number [facility] [address] [place] [address], [place] [phone] * HIV 1 ANTIGEN(S), WITH HIV-1 AND HIV-2 ANTIBODIES (02/06/2020 7:48 AM CDT) [facility] HIV 1/2 AB+ HIV1 P24 AG NON-REACTI VE NON-REACTI VE 02/06/2020 2:30 PM CDT [facility] Comment:HIV 1 p24 Ag and HIV 1/ HIV 2 Ab not detected. 02/06/2020 7:48 AM CDT us Jonathan Owens MD LABORATORY Final Result Performing Organization Address City/[facility]/ZIP Co de Phone Number [facility] [address] [place] [address], [place] [phone] * (ABNORMAL) HCV RNA,PCR QUANT. (02/06/2020 7:48 AM CDT) [facility] HEPATITIS C RNA PCR QNT 2,280,000 (H) IU/mL 02/10/2020 5:35 PM CDT [facility] NANCY FORTE HEP C RNA PCR QNT LOG 6.36(H) log IU/mL 02/10/2020 5:35 PM CDT [facility] NANCY FORTE Comment: Reference Range: ?Not Detected ? IU/mL ?Not Detected ?? Log IU/mL This test was performed using Real-Time Polymerase Chain Reaction. Reportable range is 15 IU/mL to 100,000,000 IU/mL (1.18 Log IU/mL to 8.00 Log IU/mL). For additional information please refer to http://education.Dots ,LLC/faq/DRI87m1 (This link is being provided for informational/ educational purposes only.) The analytical performance characteristics of this assay have been determined by [employer] [place], [place]. ??The modifications have not been cleared or approved by the FDA. ??This assay has been validated pursuant to the CLIA regulations and is used for clinical purposes. Test Performed by [facility], [employer], [address] [place] [address] Ward Schwartz M.D., Ph.D., Director of Laboratories , CLIA [id number] 02/06/2020 7:48 AM CDT us Jonathan Owens MD LABORATORY Final Result [facility] [employer] [facility] , * HEPATITIS B SURFACE AG, EIA (02/06/2020 7:48 AM CDT) Pathologist [facility] HEPATITIS B SURFACE AG NON-REACTI VE NON-REACTI VE 02/06/2020 8:29 PM CDT [facility] Comment:HBsAg NOT DETECTED. 02/06/2020 7:48 AM CDT Jonathan Owens MD LABORATORY Final Result [facility] [address] [place] [address], [phone] * (ABNORMAL) COMPREHENSIVE METABOLIC PANEL (02/06/2020 7:48 AM CDT) SODIUM S/P/B 139 136 - 145 MMOL/L 02/06/2020 8:31 AM CDT [facility] POTASSIUM S/P/B 4.2 3.5 - 5.1 MMOL/L 02/06/2020 8:31 AM CDT [facility] CHLORIDE S/P/B 103 98 - 107 MMOL/L 02/06/2020 8:31 AM CDT [facility] CO2 30.6 21.0 - 32.0 MMOL/L 02/06/2020 8:31 AM CDT [facility] GLUCOSE 95 70 - 99 MG/DL 02/06/2020 8:31 AM CDT [facility] Comment: FASTING GLUCOSE 100 TO 125 MG/DL IS CONSISTENT WITH IMPAIRED FASTING GLUCOSE. FASTING GLUCOSE >125 MG/DL IS CONSISTENT WITH DIABETES. RANDOM GLUCOSE >200 MG/DL WITH HYPERGLYCEMIC SYMPTOMS IS CONSISTENT WITH DIABETES. PER ADA GUIDELINES BUN 21 6 - 24 MG/DL 02/06/2020 8:31 AM CDT [facility] CREATININE S/P/B 0.88 0.70 - 1.30 MG/DL 02/06/2020 8:31 AM CDT [facility] CALCIUM S/P/B 8.6 8.4 - 10.5 MG/DL 02/06/2020 8:31 AM CDT [facility] BILIRUBIN TOTAL S/P/B 0.5 0.2 - 1.0 MG/DL 02/06/2020 8:31 AM CDT [facility] Comment: THIS ASSAY IS NOT RECOMMENDED FOR PATIENTS UNDERGOING TREATMENT WITH ELTROMBOPAG DUE TO THE POTENTIAL FOR FALSELY ELEVATED RESULTS. ALKALINE PHOSPHATASE S/P/B 67 45 - 115 U/L 02/06/2020 8:31 AM [facility] AST 72(H) 15 - 37 U/L 02/06/2020 8:31 AM [facility] ALT 223(H) 16 - 63 U/L 02/06/2020 8:31 AM [facility] TOTAL PROTEIN S/P/B 6.8 6.4 - 8.2 G/DL 02/06/2020 8:31 AM [facility] ALBUMIN S/P/B 3.8 3.4 - 5.0 G/DL 02/06/2020 8:31 AM [facility] ANION GAP 5.4 5.0 - 15.0 MMOL/L 02/06/2020 8:31 AM [facility] OSMOLALITY (CALC) 291 MOSM/KG 020 8:31 AM [facility] Comment:REFERENCE RANGE NOT ESTABLISHED EGFR NON-AFR. AMER. >90 >89 ML/MIN/1. 73 M2 02/06/2020 8:31 AM [facility] EGFR AFR. AMER. >90 >89 ML/MIN/1. 73 M2 02/06/2020 8:31 AM [facility] GFR NOTES GFR REFERENCE S: 02/06/2020 8:31 AM [facility] Comment: THE ESTIMATED GFR IS CALCULATED USING THE 2009 CKD-EPI EQUATION. THE FOLLOWING CATEGORIES FOR GRADING RENAL FUNCTION ARE RECOMMENDED BY THE INTERNATIONAL SOCIETY OF NEPHROLOGY (KDIGO 2012 CLINICAL PRACTICE GUIDELINE). G1,NORMAL OR HIGH: >89 ml/min/1.73 m2 G2,MILDLY DECREASED: 60-89 ml/min/1.73 m2 G3A,MILDLY TO MODERATELY DECREASED: 45-59 ml/min/1.73 m2 G3B,MODERATELY TO SEVERELY DECREASED: 30-44 ml/min/1.73 m2 G4,SEVERELY DECREASED: 15-29 ml/min/1.73 m2 G5,KIDNEY FAILURE: <15 ml/min/1.73 m2 02/06/2020 7:48 AM CDT Jonathan Owens MD LABORATORY Final Result [facility] [address] [place] [address], [place] [phone] * CERULOPLASMIN (02/06/2020 7:48 AM CDT) CERULOPLASMIN 31 18 - 36 mg/dL 02/13/2020 6:59 AM CDT [facility] Comment: Test Performed by [employer], [employer], [address] [place], [place] Ward Schwartz M.D., Ph.D., Director of Laboratories , [facility] [id number] 02/06/2020 7:48 AM CDT Jonathan Owens MD LABORATORY Final Result [facility] [address] [place] [address], [place] [phone] * (ABNORMAL) CBC W/DIFF AUTOMATED (02/06/2020 7:48 AM CDT) WBC 5.5 4.5 - 10.8 x10'3/uL 02/06/2020 8:02 AM CDT [facility] RBC 4.92 4.50 - 6.10 x10'6/uL 02/06/2020 8:02 AM CDT [facility] HGB 15.4 13.0 - 18.0 G/DL 02/06/2020 8:02 AM CDT [facility] HCT 46.6 37.0 - 52.0 % 02/06/2020 8:02 AM CDT [facility] MCV 94.7 78.0 - 100.0 FL 02/06/2020 8:02 AM CDT [facility] MCH 31.3(H) 27.0 - 31.0 PG 02/06/2020 8:02 AM CDT [facility] MCHC 33.0 33.0 - 36.0 G/DL 02/06/2020 8:02 AM CDT [facility] RDW 12.4 11.5 - 14.5 % 02/06/2020 8:02 AM CDT [facility] PLT 174 150 - 350 x10'3/uL 02/06/2020 8:02 AM CDT [facility] MPV 11.1(H) 7.4 - 10.4 FL 02/06/2020 8:02 AM CDT [facility] DIFFERENTIAL COMMENT NORMAL REFERENCE RANGE NOT ESTABLISHED FOR THE PROPORTIONAL LEUKOCYTE DIFFERENTIAL. 02/06/2020 8:02 AM CDT [facility] SEG NEUTROPHILS 63.0 % 0 8:02 AM CDT [facility] LYMPHOCYTES 23.1 % 02/06/2020 8:02 AM CDT [facility] MONOCYTES 10.3 % 02/06/2020 8:02 AM CDT [facility] EOSINOPHILS 2.4 % 02/06/2020 8:02 AM CDT [facility] BASOPHILS 0.6 % 02/06/2020 8:02 AM CDT [facility] IMMATURE GRANS % 0.6 % 02/06/20 20 8:02 AM CDT [facility] NRBC 0.0 % 02/06/2020 8:02 AM CDT [facility] ABS. NEUTROPHILS 3.44 1.60 - 8.30 x10'3/uL 02/06/2020 8:02 AM CDT [facility] ABS. LYMPHOCYTES 1.26 0.80 - 4.70 x10'3/uL 02/06/2020 8:02 AM CDT [facility] ABS. MONOCYTES 0.56 0.00 - 1.50 x10'3/uL 02/06/2020 8:02 AM CDT [facility] ABS. EOSINOPHILS 0.13 0.00 - 0.40 x10'3/uL 02/06/2020 8:02 AM CDT [facility] ABS. BASOPHILS 0.03 0.00 - 0.20 x10'3/uL 02/06/2020 8:02 AM CDT [facility] ABS. IMMATURE GRANULOCYTES 0.03 0.00 - 0.03 x10'3/uL 02/06/2020 8:02 AM CDT [facility] ABS. NUCLEATED RBC'S 0.00 0.00 x10'3/uL 02/06/2020 8:02 AM CDT [facility] 02/06/2020 7:48 AM CDT us Jonathna Owens MD LABORATORY Final Result [facility] [address] [place] [address], * AFP TUMOR MARKER (02/06/2020 7:48 AM CDT) AFP TUMOR MARKER 3.5 <6.1 ng/mL 02/13/20 11:46 PM CDT [facility] Comment: This test was performed using the Candy Sylvie chemiluminescent method. Values obtained from different assay methods cannot be used interchangeably. AFP levels, regardless of value, should not be interpreted as absolute evidence of the presence or absence of disease. Test performed by [employer] ? [id number] [facility], ? [place] [address] ? Ground Instructor Advanced: Crystal Boston MD,PHD,OZZIE Test Reported by [facility] Parmar, [facility], [address] [place], [place] Ward Schwartz M.D., Ph.D., Director of Laboratories , [facility] [id number] 02/06/2020 7:48 AM CDT Jonathan Owens MD LABORATORY Final Result [facility] [address] [place], [place] , [place] [phone] documented in this encounter Visit Diagnoses Diagnosis Chronic hepatitis C virus infection (CMS/HCC HHS/HCC)- Primary documented in this encounter Care Teams Bookbinder Chief Relationship Specialty Start Date End Date Reese Pollack MD [address] [place] [phone] PCP - General FAMILY PRACTICE 02/06/20 documented as of this encounter
--- OUTSIDE RECORDS SUMMARY | 2024-05-26 18:21 | XMS_ITS | Encounter Summary ---
Author Organization [facility] - [facility] Address [facility]. [place], [place] [id number] [place] [id number] Care Team Providers Care Stenographer Print Shop Name Role Phone Reese Pollack MD Primary Care Provider [phone] Reason for Referral * Imaging (Routine) - Closed Specialty Diagnoses / Procedures Referred By Contac t Referred To Contact RADIOLOGY Diagnoses Chronic hepatitis C virus infection (CMS/HCC HHS/HCC) Procedures ABD LIMITED Jonathan Owens MD [address] [place] [address] Phone: tel: fax: Referral ID Status Reason Start Date Expiration Date Visits Re quested Visits Authorized [id number] Closed 02/04/2020 03/05/2021 1 1 Reason for Visit * Imaging (Routine) - Closed Specialty Diagnoses / Procedures Referred By Claudia cee Referred To Contact RADIOLOGY Diagnoses Chronic hepatitis C virus infection (CMS/HCC HHS/HCC) Procedures ABD LIMITED Jonathan Owens MD [address] [place] [address] Phone: tel: fax: Referral ID Status Reason Start Date Expiration Date Visits Re quested Visits Authorized [id number] Closed 02/04/2020 03/05/2021 1 1 Encounter Details Date Type Department Care Team (Latest Contact Info) Description 02/06/2020 6:59 AM CDT - 02/06/2020 7:00 AM CDT Hospital Encounter 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 No / Unsure 02/06/2020 6:56 AM CDT documented as of this encounter Medications at Time of Discharge citalopram 40 MG tablet Take 40 mg by mouth daily. 01/17/2020 documented as of this encounter Plan of Treatment Not on file documented as of this encounter Procedures Procedure Name Priority Date/Time Associated Diagnosis Comments US ABD LIMITED Routine 02/06/2020 7:57 AM CDT Chronic hepatitis C virus infection (CMS/HCC HHS/HCC) documented in this encounter Results * US ABD LIMITED (02/06/2020 7:57 AM CDT) Anatomical Region Laterality Modality Abdomen Ultrasound 02/06/2020 8:41 AM CDT Impressions 02/06/2020 8:44 AM CDT IMPRESSION: Slight increased hepatic parenchymal echogenicity which could indicate mild hepatic cirrhosis. No evidence of hepatic mass and no evidence of cholelithiasis. Interpreted By: Dar Patel MD, 02/06/2020 8:41 AM Narrative 02/06/2020 8:44 AM CDT 02/06/2020, 7:03 AM. HISTORY: Chronic hepatitis C virus infection. EXAM: Ultrasound imaging of the abdomen was performed utilizing grayscale and color Doppler spectral analysis imaging techniques. Correlation to CT imaging 07/24/2013. FINDINGS: The liver is normal in size with a greatest measured length of 14.6 cm. The liver has a slightly increased minimally heterogeneous echogenic parenchymal pattern compared to the parenchyma of the upper pole right kidney which may indicate mild hepatic cirrhosis. There is no nodularity of the surface of the liver. No hepatic mass or cyst. No echogenic material within the gallbladder and no evidence of cholelithiasis. The gallbladder wall measures 2 mm in thickness, a normal value. No pericholecystic fluid collection. No dilatation of the hepatic and portal veins with normal direction blood flow in hepatic and portal veins. The common hepatic duct measures 3.6 mm in diameter, normal value. Pancreas is not demonstrated and not evaluated. No ascites in the imaged portion of the right upper quadrant of the abdomen. Limited visualization right kidney without remarkable abnormality. Procedure Note Dar Patel MD - 02/06/2020 02/06/2020, 7:03 AM. HISTORY: Chronic hepatitis C virus infection. EXAM: Ultrasound imaging of the abdomen was performed utilizinggrayscale and color Doppler spectral analysis imaging techniques. Correlation toCT imaging 07/24/2013. FINDINGS: The liver is normal in size with a greatest measured length of 14.6 cm. The liver has a slightly increased minimally heterogeneous echogenic parenchymal pattern compared to the parenchyma of the upperpole right kidney which may indicate mild hepatic cirrhosis. There is no nodularity of the surface of the liver. No hepatic mass or cyst. No echogenic material within the gallbladder and no evidence of cholelithiasis. The gallbladder wall measures 2 mm in thickness, anormal value. No pericholecystic fluid collection. No dilatation of the hepatic and portal veins with normal direction blood flow in hepatic and portal veins. The common hepatic duct measures 3.6 mm in diameter, normalvalue. Pancreas is not demonstrated and not evaluated. No ascites in the imaged portion of the right upper quadrant of the abdomen. Limitedvisualization right kidney without remarkable abnormality. IMPRESSION: Slight increased hepatic parenchymal echogenicity which could indicatemild hepatic cirrhosis. No evidence of hepatic mass and no evidence of cholelithiasis. Interpreted By: Dar Patel MD, 02/06/2020 8:41 AM Jonathan Owens MD ULTRASOUND Final Result documented in this encounter Visit Diagnoses Diagnosis Chronic hepatitis C virus infection (CMS/HCC HHS/HCC) documented in this encounter Care Teams Stenographer Print Shop Relationship Specialty Start Date End Date Reese Pollack MD [address] [place] [id number] PCP - General FAMILY PRACTICE 02/06/20 documented as of this encounter
--- OUTSIDE RECORDS SUMMARY | 2024-05-26 18:21 | XMS_ITS | Encounter Summary ---
Author Organization [facility] - [facility] Address [address] [place] [address]. 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 Gender Identity Not on file Sexual Orientation Not on file documented as of this encounter Plan of Treatment Not on file documented as of this encounter Visit Diagnoses Not on filedocumented in this encounter Additional Health Concerns Infection Onset Date Last Indicated Resolved Time COVID-19 Rule Out 02/15/2020 02/15/2020 02/17/2020 6:00 AM CDT documented as of this encounter Care Teams Issue Clerk Relationship Specialty Start Date End Date None, Provider, PCP - General 01/28/20 02/05/20 Reese Pollack MD [address] [place] [phone] PCP - General FAMILY PRACTICE 02/06/20 documented as of this encounter
--- OUTSIDE RECORDS SUMMARY | 2024-05-26 18:21 | XMS_ITS | Encounter Summary ---
Author Organization [facility] Address [address] [place] [address]. 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
--- OUTSIDE RECORDS SUMMARY | 2024-05-26 18:21 | XMS_ITS | Encounter Summary ---
Author Organization [facility] Address [address] [place] [address]. [place] [address] [place] [address] Care Team Providers Care Manager Transfusion Name Role Phone Reese Pollack MD Primary Care Provider [phone]- [phone] Encounter Details Date Type Department Care Team (Latest Contact Info) Description 02/06/2020 7:01 AM CDT - 02/06/2020 11:59 PM CDT Hospital Encounter [facility] [address] [place] [address] Jonathan Owens MD [address] [place] [address] Discharge Disposition: Home or Self Care (Routine Discharge) Social History Tobacco Use Types Packs/Day Years Used Date Smoking Tobacco: Never Assessed Sex and Gender Information Value Date Recorded Sex Assigned at Not on file Legal Sex Male 5:54 PM [employer] Gender Identity Not on file Sexual Orientation [...] Procedure Name Priority Date/Time Associated Diagnosis Comments AFP TUMOR MARKER Routine 02/06/2020 7:48 AM CDT Chronic hepatitis C virus infection (CMS/HCC HHS/HCC) HIV 1 ANTIGEN(S), WITH HIV-1 AND HIV-2 ANTIBODIES Routine 02/06/2020 7:48 AM CDT Chronic hepatitis C virus infection (CMS/HCC HHS/HCC) CRYOGLOBULIN PROFILE Routine 02/06/2020 7:48 AM CDT Chronic hepatitis C virus infection (CMS/HCC HHS/HCC) HC JARROD SCREEN Routine 02/06/2020 7:48 AM CDT Chronic hepatitis C virus infection (CMS/HCC HHS/HCC) MISCELLANEOUS LAB TEST Routine 0 7:48 AM CDT Chronic hepatitis C virus infection (CMS/HCC HHS/HCC) HEP C VIRAL RNA GENOTYPE, LIPA Routine 02/06/2020 7:48 AM CDT Chronic hepatitis C virus infection (CMS/HCC HHS/HCC) HCV RNA,PCR QUANT. Routine 02/06/2020 7: 48 AM CDT Chronic hepatitis C virus infection (CMS/HCC HHS/HCC) IRON SAT PANEL (IRON,IBC,%SAT) Routine 02/06/2020 7:48 AM CDT Chronic hepatitis C virus infection (CMS/HCC HHS/HCC) PARTIAL THROMBOPLASTIN TIME,PTT Routine 02/06/2020 7:48 AM CDT Chronic hepatitis C virus infection (CMS/HCC HHS/HCC) PROTHROMBIN TIME, VENOUS Routine 02/06/2020 7:48 AM CDT Chronic hepatitis C virus infection (CMS/HCC HHS/HCC) COMPREHENSIVE METABOLIC PANEL Routine 02/06/2020 7:48 AM CDT Chronic hepatitis C virus infection (CMS/HCC HHS/HCC) HEPATITIS B SURFACE AG, EIA Routine 02/06/2020 7:48 AM CDT Chronic hepatitis C virus infection (CMS/HCC HHS/HCC) HEPATITIS B SURFACE ANTIBODY Routine 02/06/2020 7:48 AM CDT Chronic hepatitis C virus infection (CMS/HCC HHS/HCC) HEPATITIS A ANTIBODY Routine 02/06/2020 7:48 AM CDT Chronic hepatitis C virus infection (CMS/HCC HHS/HCC) CBC W/DIFF AUTOMATED Routine 02/06/2020 7:48 AM CDT Chronic hepatitis C virus infection (CMS/HCC HHS/HCC) THYROID STIM HORMONE TSH Routine 02/06/2020 7:48 AM CDT Chronic hepatitis C virus infection (CMS/HCC HHS/HCC) FERRITIN Routine 02/06/2020 7:48 AM CDT Chronic hepatitis C virus infection (CMS/HCC HHS/HCC) CERULOPLASMIN Routine 02/06/2020 7:48 AM CDT Chronic hepatitis C virus infection (CMS/HCC HHS/HCC) [id number], TOTAL Routine 02/06/2020 7:48 AM CDT Chronic hepatitis C virus infection (CMS/HCC HHS/HCC) documented in this encounter Results * (ABNORMAL) MISCELLANEOUS LAB TEST (02/06/2020 7:48 AM CDT) TEST NAME: [id number] LIVER FIBROSIS FIBROSURE 02/06/2020 7:53 AM CDT [facility] SPECIMEN TYPE SERUM 02/06/2020 7:53 AM CDT [facility] TEST RESULT: Flexitest 1(A) 02/14/2020 3:38 PM CDT [facility] NANCY FORTE Comment: Flexitest 1 TESTS [id number] RANGE Fibrosis Score ? 0.37 ?? Fibrosis [...] a>0.62 and a<=1.00 : A3 (severe activity) Xwzxr-7-Lhjqcsbnsvmod ? 163 ?? mg/dL 106-279 Haptoglobin ?39 L mg/dL 43-212 Apolipoprotein A1 ? 138 ?? mg/dL 94-176 Total Bilirubin ? 0.5 ?? mg/dL 0.2-1.2 GGT ?53 ?? U/L 3-95 ALT ? 157 H U/L 9-46 Reference ID ?[id number] ?? Footnote ? REPORT ?? The reliability of results is dependent on compliance with the preanalytical and analytical conditions recommended by [employer]. The tests have to be deferred for: [...] The performance characteristics [facility] by [facility]. It has not been cleared or approved by the U.S. Food and Drug Administration. Performance characteristics refer to the analytical performance of the test. Mobile [employer], the associated logo, [employer] and all associated [employer] bishop are the registered trademarks of [employer]. All third green party bishop - (R) and (TM) - are the property of their respective owners. (C) [id number] [employer]. All rights reserved. Test performed by [facility] ? [address], ? [place] [address] ? Paintings Restorer: Crystal Boston MD,PHD,OZZIE Test Reported by Gema Parmar [facility], [address] [place], [place] Ward Schwartz M.D., Ph.D., Director of Laboratories , CLIA [id number] 02/06/2020 7:48 AM CDT Jonathan Owens MD LABORATORY Final Result Performing Organization Address [facility]/ZIP Co de Phone Number [facility] [address] [place] [address], [place] [phone] [facility] [address] [place] [address], * HEP C VIRAL RNA GENOTYPE, LIPA (02/06/2020 7:48 AM CDT) HEPATITIS C VIRAL RNA GENOTYPE 2 02/12/2020 9:38 PM CDT [email or web address] ANTOINE Comment: The method used in this test is RT-PCR and reverse hybridization (Line Probe) of the 5' UTR and core region of the HCV genome. The analytical performance characteristics of this assay have been determined by [facility]. ??The modifications have not been cleared or approved by the FDA. ??This assay has been validated pursuant to the CLIA regulations and is used for clinical purposes. For additional information, please refer to http://education.TuneCore.Nokori/faq/HCVGenotypin (This link is being provided for informational/ educational purposes only.) Test Performed by iTwixie Durbin, [facility], [address] [place], [place] aWrd Schwartz M.D., Ph.D., Director of Laboratories , CLIA [id number] 02/06/2020 7:48 AM CDT Jonathan Owens MD LABORATORY Final Result Performing Organization Address City/[facility]/ZIP Co de Phone Number [email or web address] [address] [place], [place] , [place] [phone] * (ABNORMAL) HEPATITIS B SURFACE ANTIBODY (02/06/2020 7:48 AM CDT) HEP B SURFACE AB <3.1(L) >9.9 MIU/ML 02/06/2020 8:29 PM CDT [facility] Comment:INDIVIDUAL IS CONSID ERED NOT IMMUNE TO HBV INFECTION. 02/06/2020 7:48 AM CDT us Jonathan Owens MD LABORATORY Final Result Performing Organization Address City/[facility]/ZIP Co de Phone Number [facility] [address] [place] [address], [place] [phone] * HEPATITIS A ANTIBODY (02/06/2020 7:48 AM CDT) HEPATITIS A TOTAL AB Nonreactive Nonreactive 02/09/2020 8:05 PM CDT [facility] SUMMER CLAUDIO Comment: For additional information, please refer to https://GenerationOne.Stylefie/faq/NZJ442 (This link is being provided for informational/ educational purposes only.) COMMENT REPORT 02/09/2020 8:05 PM CDT [facility] SUMMER CLAUDIO Comment: Not indicated Test Performed by Gema Parmar, [employer] [place], [address] [place], [place] Ward Schwartz M.D., Ph.D., Director of Laboratories , [place] [id number] 02/06/2020 7:48 AM CDT us Jonathan Owens MD LABORATORY Final Result Performing Organization Address City/[facility]/ZIP Co de Phone Number [email or web address] [address] [place], [place] , [place] [phone] * CRYOGLOBULIN QUALITATIVE (02/06/2020 7:48 AM CDT) CRYOGLOBULIN QL S/P/B Negative Negative 02/13/2020 1:35 AM CDT [facility] NANCY FORTE Comment: The Cryocrit is primarily intended for following a patient with previously defined and quantitated cryoglobulins. The cryocrit may consist of cryoglobulins, fibrins, complement, or mixtures of these. If not previously characterized, consider ordering test code 28975, Cryoglobulin Screen with Reflex to Cryoglobulin Profile, Serum. Test Performed by [employer], [employer] [place], [address] [place] [address] Ward Schwartz M.D., Ph.D., Director of Laboratories , [facility] [id number] % CRYOCRIT END OF REPORT 02/13/2020 1:35 AM CDT [facility] NANCY FORTE 02/06/2020 7:48 AM CDT Jonathna Owens MD LABORATORY Final Result [email or web address] [address], [place] [phone] * IRON SATURATION PNL (FE/TIBC/SAT) (02/06/2020 7:48 AM CDT) IRON 144 65 - 175 MCG/DL 02/06/2020 8:59 AM CDT [facility] IRON BINDING CAPACITY 328 250 - 450 MCG/DL 02/06/2020 8:59 AM CDT [facility] IRON SATURATION 44 % 0 8:59 AM CDT [facility] Comment:REFERENCE RANGE NOT ESTABLISHED 02/06/2020 7:48 AM CDT us Jonathan Owens MD LABORATORY Final Result [facility] [address] [place] [address], [place] [phone] * [id number] TOTAL (02/06/2020 7:48 AM CDT) O-4-STRZFEBRBRL QUANT 132 83 - 199 mg/dL 02/13/2020 12:30 PM CDT [facility] Comment: Test Performed by [employer], [employer], [address] [place] [address] Ward Schwartz M.D., Ph.D., Director of Laboratories , [place] [id number] 02/06/2020 7:48 AM CDT Jonathan Owens MD LABORATORY Final Result Performing Organization Address [facility]/ZIP Co de Phone Number [facility] [address] , [place] [phone] * ANTINUCLEAR ANTIBODY WI RFX (02/06/2020 7:48 AM CDT) JARROD 0.3 02/07/2020 11:48 AM CDT [facility] Comment: NEGATIVE: <0.7 RATIO JARROD PROFILE AND TITER NOT PERFORMED THE JARROD SCREEN TEST FOR THE FOLLOWING ANTIBODIES: SSA1 (RO), SSB1 (LA), MARIA, SCL70, JO1, CENTROMERE, CARDING MACHINE FEEDER HISTONE MUST BE ORDERED SEPARATELY DNA (DS) ANTIBODY <0.8 IU/ML 020 11:48 AM CDT [facility] Comment: NEGATIVE: <10 IU/mL EQUIVOCAL: 10 to 15 IU/mL POSITIVE: >15 IU/mL THIS QUANTITATIVE ASSAY IS CALIBRATED TO THE [employer]'S WO/80 STANDARD. THE LEVEL OF dsDNA AUTOANTIBODY GERERALLY CORRELATES WITH THE LEVEL OF DISEASE ACTIVITY IN SYSTEMIC LUPUS ERYTHMATOSUS 02/06/2020 7:48 AM CDT Jonathan Owens MD LABORATORY Final Result [facility] [address] [place] [address], [id number] * FERRITIN (02/06/2020 7:48 AM CDT) FERRITIN 257.9 26 - 388 NG/ML 02/06/2020 8:31 AM CDT [facility] 02/06/2020 7:48 AM CDT Jonathan Owens MD LABORATORY Final Result Performing Organization Address [facility] Co de Phone Number [facility] [address] [place] [address], * THYROID STIM HORMONE, TSH (02/06/2020 7:48 AM CDT) Pathologist [facility] TSH 1.590 0.358 - 3.740 uIU/ML 02/06/2020 8:31 AM CDT [facility] 02/06/2020 7:48 AM CDT Jonathan Owens MD LABORATORY Final Result Performing Organization Address [facility] Co de Phone Number [facility] [address] [place] [address], * PARTIAL THROMBOPLASTIN TIME,PTT (02/06/2020 7:48 AM CDT) Pathologist [facility] PTT 34.3 25.1 - 36.5 SEC 02/06/2020 8:23 AM CDT [facility] Comment:THERAPEUTIC RANGE: 4 6.2-77.0 SEC 02/06/2020 7:48 AM CDT us Jonathan Owens MD LABORATORY Final Result Performing Organization Address City/[facility]/ZIP Co de Phone Number [facility] [address] [place] [phone], * PROTIME/INR, VENOUS (02/06/2020 7:48 AM CDT) PROTIME 11.5 9.4 - 12.5 SEC 02/06/2020 8:23 AM CDT [facility] INR 1.0 0.9 - 1.1 02/06/2020 8:23 AM CDT [facility] 02/06/2020 7:48 AM CDT Jonathan Owens MD LABORATORY Final Result [facility] [address] [place] [address], * HIV 1 ANTIGEN(S), WITH HIV-1 AND HIV-2 ANTIBODIES (02/06/2020 7:48 AM CDT) Pathologist [facility] HIV 1/2 AB+ HIV1 P24 AG NON-REACTI VE NON-REACTI VE 02/06/2020 2:30 PM CDT [facility] Comment:HIV 1 p24 Ag and HIV 1/ HIV 2 Ab not detected. 02/06/2020 7:48 AM CDT Jonathan Owens MD LABORATORY Final Result [facility] [address] [place] [address], [phone] * (ABNORMAL) HCV RNA,PCR QUANT. (02/06/2020 7:48 AM CDT) HEPATITIS C RNA PCR QNT 2,280,000 (H) IU/mL 02/10/2020 5:35 PM CDT [facility] RNA PCR QNT LOG 6.36(H) log IU/mL 02/10/2020 5:35 PM CDT [facility] Comment: Reference Range: ?Not Detected ? IU/mL ?Not Detected ?? Log IU/mL This test was performed using Real-Time Polymerase Chain Reaction. Reportable range is 15 IU/mL to 100,000,000 IU/mL (1.18 Log IU/mL to 8.00 Log IU/mL). For additional information please refer to http://education.Stylefie/faq/RUZ61w7 (This link is being provided for informational/ educational purposes only.) The analytical performance characteristics of this assay have been determined by [employer] [place], [place]. ??The modifications have not been cleared or approved by the FDA. ??This assay has been validated pursuant to the CLIA regulations and is used for clinical purposes. Test Performed by [facility], [employer] [facility], [address] [place] [address] Ward Schwartz M.D., Ph.D., Director of Laboratories , CLIA [id number] 02/06/2020 7:48 AM CDT Jonathan Owens MD LABORATORY Final Result Performing Organization Address [facility]/ZIP Co de Phone Number [facility] [address] , [place] [phone] * HEPATITIS B SURFACE AG, EIA (02/06/2020 7:48 AM CDT) HEPATITIS B SURFACE AG NON-REACTI VE NON-REACTI VE 02/06/2020 8:29 PM CDT [facility] Comment:HBsAg NOT DETECTED. 02/06/2020 7:48 AM CDT us Jonathan Owens MD LABORATORY Final Result Performing Organization Address City/[facility]/ZIP Co de Phone Number [facility] [address] [place] [address], [place] [phone] * (ABNORMAL) COMPREHENSIVE METABOLIC PANEL (02/06/2020 7:48 AM CDT) [facility] Signature SODIUM S/P/B 139 136 - 145 MMOL/L 02/06/2020 8:31 AM CDT [facility] POTASSIUM S/P/B 4.2 3.5 - 5.1 MMOL/L 02/06/2020 8:31 AM CDT [facility] CHLORIDE S/P/B 103 98 - 107 MMOL/L 02/06/2020 8:31 AM CDT [facility] CO2 30.6 21.0 - 32.0 MMOL/L 02/06/2020 8:31 AM CDT [facility] GLUCOSE 95 70 - 99 MG/DL 02/06/2020 8:31 AM T [facility] Comment: FASTING GLUCOSE 100 TO 125 MG/DL IS CONSISTENT WITH IMPAIRED FASTING GLUCOSE. FASTING GLUCOSE >125 MG/DL IS CONSISTENT WITH DIABETES. RANDOM GLUCOSE >200 MG/DL WITH HYPERGLYCEMIC SYMPTOMS IS CONSISTENT WITH DIABETES. PER ADA GUIDELINES BUN 21 6 - 24 MG/DL 02/06/2020 8:31 AM CDT [facility] CREATININE S/P/B 0.88 0.70 - 1.30 MG/DL 02/06/2020 8:31 AM CDT [facility] CALCIUM S/P/B 8.6 8.4 - 10.5 MG/DL 02/06/2020 8:31 AM CDT [facility] BILIRUBIN TOTAL S/P/B 0.5 0.2 - 1.0 MG/DL 02/06/2020 8:31 AM T [facility] Comment: THIS ASSAY IS NOT RECOMMENDED FOR PATIENTS UNDERGOING TREATMENT WITH ELTROMBOPAG DUE TO THE POTENTIAL FOR FALSELY ELEVATED RESULTS. ALKALINE PHOSPHATASE S/P/B 67 45 - 115 U/L 02/06/2020 8:31 AM CDT [facility] AST 72(H) 15 - 37 U/L 02/06/2020 8:31 AM CDT [facility] ALT 223(H) 16 - 63 U/L 02/06/2020 8:31 AM CDT [facility] TOTAL PROTEIN S/P/B 6.8 6.4 - 8.2 G/DL 02/06/2020 8:31 AM CDT [facility] ALBUMIN S/P/B 3.8 3.4 - 5.0 G/DL 02/06/2020 8:31 AM CDT [facility] ANION GAP 5.4 5.0 - 15.0 MMOL/L 02/06/2020 8:31 AM CDT [facility] OSMOLALITY (CALC) 291 MOSM/KG 020 8:31 AM CDT [facility] Comment:REFERENCE RANGE NOT ESTABLISHED EGFR NON-AFR. AMER. >90 >89 ML/MIN/1. 73 M2 02/06/2020 8:31 AM CDT [facility] EGFR AFR. AMER. >90 >89 ML/MIN/1. 73 M2 02/06/2020 8:31 AM CDT [facility] GFR NOTES GFR REFERENCE S: 02/06/2020 8:31 AM CDT [facility] Comment: THE ESTIMATED GFR IS CALCULATED [...] <15 ml/min/1.73 m2 02/06/2020 7:48 AM CDT us Jonathan Oewns MD LABORATORY Final Result [facility] [address] [employer] [place] [address], * CERULOPLASMIN (02/06/2020 7:48 AM CDT) CERULOPLASMIN 31 18 - 36 mg/dL 02/13/2020 6:59 AM CDT [facility] ELINA Comment: Test Performed by Gema Parmar, [employer] [facility], [address] [place], [place] Ward Schwartz M.D., Ph.D., Director of Laboratories , CLIA [id number] 02/06/2020 7:48 AM CDT us Jonathan Owens MD LABORATORY Final Result [facility] [address] [place], [place] , [place] [phone] * (ABNORMAL) CBC W/DIFF AUTOMATED (02/06/2020 7:48 AM CDT) Pathologist [facility] WBC 5.5 4.5 - 10.8 x10'3/uL 02/06/2020 8:02 AM CDT [facility] RBC 4.92 4.50 - 6.10 x10'6/uL 02/06/2020 8:02 AM CDT [facility] HGB 15.4 13.0 - 18.0 G/DL 02/06/2020 8:02 AM CDT [facility] HCT 46.6 37.0 - 52.0 % 02/06/2020 8:02 AM CDT [facility] MCV 94.7 78.0 - 100.0 FL 02/06/2020 8:02 AM CDT [facility] MCH 31.3(H) 27.0 - 31.0 PG 02/06/2020 8:02 AM CDT [facility] MCHC 33.0 33.0 - 36.0 G/DL 02/06/2020 8:02 AM CDT [facility] RDW 12.4 11.5 - 14.5 % 02/06/2020 8:02 AM CDT [facility] PLT 174 150 - 350 x10'3/uL 02/06/2020 8:02 AM CDT [facility] MPV 11.1(H) 7.4 - 10.4 FL 02/06/2020 8:02 AM CDT [facility] DIFFERENTIAL COMMENT NORMAL REFERENCE RANGE NOT ESTABLISHED FOR THE PROPORTIONAL LEUKOCYTE DIFFERENTIAL. 02/06/2020 8:02 AM CDT [facility] SEG NEUTROPHILS 63.0 % 0 8:02 AM CDT [facility] LYMPHOCYTES 23.1 % 02/06/2020 8:02 AM CDT [facility] MONOCYTES 10.3 % 02/06/2020 8:02 AM CDT [facility] EOSINOPHILS 2.4 % 02/06/2020 8:02 AM CDT [facility] BASOPHILS 0.6 % 02/06/2020 8:02 AM T [facility] IMMATURE GRANS % 0.6 % 02/06/20 20 8:02 AM CDT [facility] NRBC 0.0 % 02/06/2020 8:02 AM CDT [facility] ABS. NEUTROPHILS 3.44 1.60 - 8.30 x10'3/uL 02/06/2020 8:02 AM CDT [facility] ABS. LYMPHOCYTES 1.26 0.80 - 4.70 x10'3/uL 02/06/2020 8:02 AM T [facility] ABS. MONOCYTES 0.56 0.00 - 1.50 x10'3/uL 02/06/2020 8:02 AM CDT [facility] ABS. EOSINOPHILS 0.13 0.00 - 0.40 x10'3/uL 02/06/2020 8:02 AM T [facility] ABS. BASOPHILS 0.03 0.00 - 0.20 x10'3/uL 02/06/2020 8:02 AM T [facility] ABS. IMMATURE GRANULOCYTES 0.03 0.00 - 0.03 x10'3/uL 02/06/2020 8:02 AM T [facility] ABS. NUCLEATED RBC'S 0.00 0.00 x10'3/uL 02/06/2020 8:02 AM CDT [facility] 02/06/2020 7:48 AM CDT Jonathan Owens MD LABORATORY Final Result Performing Organization Address [facility]/ZIP Co de Phone Number [facility] [address] [place] [address], [place] [phone] * AFP TUMOR MARKER (02/06/2020 7:48 AM CDT) AFP TUMOR MARKER 3.5 <6.1 ng/mL 02/13/20 11:46 PM CDT [facility] VIRGINIE ELINA Comment: This test was performed using the Candy Bruno chemiluminescent method. Values obtained from different assay methods cannot be used interchangeably. AFP levels, regardless of value, should not be interpreted as absolute evidence of the presence or absence of disease. Test performed by [facility] ? [address] [facility], ? [place] [address] ? Paintings Restorer: Crystal Boston MD,PHD,OZZIE Test Reported by Gema Parmar, [facility], [address] [place] [address] Ward Schwartz M.D., Ph.D., Director of Laboratories , [facility] [id number] 02/06/2020 7:48 AM CDT us Jonathan Owens MD LABORATORY Final Result Performing Organization Address City/[facility]/ZIP Co de Phone Number [facility]It[facility] [phone] [place], [place] , documented in this encounter Visit Diagnoses Diagnosis Chronic hepatitis C virus infection (CMS/HCC HHS/HCC) documented in this encounter Care Teams Manager Transfusion Relationship Specialty Start Date End Date Reese Pollack MD [address] [place] [address] PCP - General FAMILY PRACTICE 02/06/20 documented as of this encounter
--- OUTSIDE RECORDS SUMMARY | 2024-05-26 18:21 | XMS_ITS | Encounter Summary ---
Author Organization [facility] Address [address] [place] [address]. 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 Gender Identity Not on file Sexual [...] Procedure Name Priority Date/Time Associated Diagnosis Comments CORONAVIRUS (COVID 19) Routine 02/15/2020 9:48 AM CDT Pre-operative laboratory examination documented in this encounter Results * PRE-SURGICAL/PRE-PROCEDURE CORONAVIRUS (COVID 19) (02/15/2020 9:48 AM CDT) CORONAVIRUS SARS COV 2 PCR (RESP) NOT DETECTED NOT DETECTED 02/17/2020 6:00 AM CDT [facility] Comment: A Not Detected (negative) test result [...] providers and patients using the following websites: https://www.[employer]./home/Covid-19/HCP/QuestIVD/fact- sheet.html https://www.[employer]./home/Covid-19/Patients/ Quest[employer]/fact-sheet.html This test has been authorized by the FDA under an Emergency Use Authorization (EUA) for use by authorized laboratories. Due to the current public health emergency, [employer] is receiving a high volume of samples [...] about COVID-19 can be found at the [employer] website: www.[employer]./Covid19. Test performed at [facility] [address] ??[phone] Director: JULY VANCE DO,MPH FIRST TEST YES 02/15/2020 9:34 AM CDT [facility] EMPLOYED IN HEALTHCARE NO 02/15/2020 9:34 AM CDT [facility] SYMPTOMATIC DEFINED BY CDC NO 02/15/2020 9:34 AM CDT [facility] DATE OF SYMPTOM ONSET UNKNOWN 02/15/2020 9:52 AM CDT [facility] HOSPITALIZATION STATUS NO 02/15/2020 9:34 AM CDT [facility] PATIENT IN ICU NO 02/15/2020 9:34 AM CDT [facility] RESIDENT OF [facility] NO 02/15/2020 9:34 AM CDT [facility] NOT 02/15/2020 9:52 AM CDT [facility] PATIENT'S RACE WHITE OR 02/15/2020 9:34 AM CDT [facility] ETHNICITY NONHISPANIC 02/15/2020 9:34 AM CDT [facility] SOURCE (QST) NASOPHARYNGEAL SWAB 02/15/2020 9:34 AM CDT [facility] NASOPHARYNGEAL SWAB / Unknown 02/15/2020 9:48 AM CDT us Nikolas Payton MD MICROBIOLOGY - GENERAL ORDERA BLES Final Result [facility] [address] [place] [address], [facility] [id number] [place] [id number], [place] documented in this encounter Visit Diagnoses Diagnosis Pre-operative laboratory examination Pre-procedural laboratory examination documented in this encounter Additional Health Concerns Infection Onset Date Last Indicated Resolved Time COVID-19 Rule Out 02/15/2020 02/15/2020 02/17/2020 6:00 AM CDT documented as of this encounter Care Teams Commercial Green Building Architect Relationship Specialty Start Date End Date Reese Pollack MD [address] [place] [phone] PCP - General FAMILY PRACTICE 02/06/20 documented as of this encounter
== END 2024-05-20 11:22 | disposition home or self-care (01) ==
PROVIDERS: Emergency Provider Emergency Medicine; PCP Family Medicine
DX: J40 Bronchitis, not specified as acute or chronic (principal); Z20.822 Contact with and (suspected) exposure to COVID-19
CPT/HCPCS: 71045; 87637; 99283

== ENCOUNTER 2024-08-26 16:57 | Outpatient (CLI) | payer OTHER, SELFPAY ==
--- NOTE | ~2024-08-26 | CT_ITS ---
CT soft tissue neck w con Ordering provider: Yaniv Holguin, CARMEL History: 58 years Male with . MASS OF RIGHT SIDE OF NECK X 4 DAYS, BB, PAINFUL . Comparison: None. Technique: CT soft tissues neck was performed with contrast. . Automated exposure control and iterat mone reconstruction technique were employed. The dose-length product was 500.20 mGy-cm. 75 mL Omnipaqu e 350 was given IV. Findings: LOWER HEAD: The visualized brain parenchyma, optic globes/orbits and mastoids are normal. Right max illary sinus disease. Right nasal septal deviation. SALIVARY GLANDS: Normal. THYROID: Normal. SUPRAHYOID DEEP SPACES: Enlarged lymph nodes seen in the right parapharyngeal space with the largest measures 2.5 cm. Enlarged lymph nodes seen in the posterior triangle with the largest showing necrosis and measures 2. 3x 2.5 cm. Abscess formation in this lymph node is not excluded. Surrounding fat stranding is seen ar ound the lymph nodes in the posterior triangle. Smaller one is seen inferiorly with similar appearanc es measuring 1.6 cm better seen on the coronal images. Slightly enlarged left parapharyngeal lymph nodes seen with the largest measures 1.3 cm. CAROTID ARTERIES: Normal. No dominant right vertebral artery. JUGULAR VEINS: Normal. TONSILS: Normal. ORAL CAVITY: Partially obscured by dental amalgam but normal as visualized. PHARYNX, LARYNX AND TRACHEA: Patent and normal. No prevertebral soft tissue swelling. SUPERFICIAL SOFT TISSUES: Normal. No lymphadenopathy or neck mass. THORACIC INLET/VISUALIZED UPPER CHEST: Normal. SKELETAL: Age appropriate degenerative changes. IMPRESSION: 1. Lymphadenopathy is seen in the right side of the neck with necrotic changes seen in 2 lymph nodes in the posterior triangle. Further evaluation and follow-up advised. 2. Right maxillary sinus disease. Reviewed, dictated and finalized at location A. IMPRESSION: 1. Lymphadenopathy is seen in the right side of the neck with necrotic changes seen in 2 lymph nodes in the posterior triangle. Further evaluation and follow -up advised. 2. Right maxillary sinus disease.
--- OUTSIDE RECORDS SUMMARY | 2024-08-26 17:53 | XMS_ITS | Encounter Summary ---
Author Organization [facility] - [facility] Address [facility] [place] [address] Care Team Providers Care Cap Maker Name Role Phone None, Provider Primary Care Provider Reese Talamantes MD Primary Care Provider [phone] Encounter Details Date Type Department Care Team (Late st Contact Info) Description 10/20/2018 Abstract [facility] CONVERSION [address] [place] [address] , Generic Conversion, Social History Tobacco Use Types Packs/Day Years Used Date Smoking Tobacco: Never Assessed Sex and Gender Information Value Date Recorded Sex Assigned at Not on file 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 Gender Identity Not on file Sexual Orientation Not on file documented as of this encounter Plan of Treatment Not on file documented as of this encounter Visit Diagnoses Not on filedocumented in this encounter Additional Health Concerns Infection Onset Date Last Indicated Resolved Time COVID-19 Rule Out 02/15/2020 02/15/2020 02/17/2020 6:00 AM CDT documented as of this encounter Care Teams Cap Maker Relationship Specialty Start Date End Date None, Provider, PCP - General 01/28/20 02/05/20 Reese Pollack MD [address] [place] [phone] PCP - General FAMILY PRACTICE 02/06/20 documented as of this encounter
--- OUTSIDE RECORDS SUMMARY | 2024-08-26 17:53 | XMS_ITS | Clinical Summary ---
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 Gender Identity Not on file Sexual Orientation Not on file Last Filed Vital Signs Vital Sign Reading Time Taken Comments Blood Pressure 116/60 02/18/2020 1:15 PM CDT Pulse 51 02/18/2020 1:15 PM CDT Temperature 36 C (96.8 F) 02/18/2020 1:15 PM CDT Respiratory Rate 20 [...] Vaccines (1 of 2) 12/23/2017 COVID-19 Vaccine (2023-25 season) 2024 Colorectal Cancer Screening Colonoscopy (10 Years) 02/17/2030 02/18/2020, 02/18/2020 Hepatitis C Completed 02/06/2020, 01/14, 02/06/2020, Additional history exists Meningococcal B Vaccine Aged Out No l onger eligible based on patient's age to complete this topic Meningococcal Vaccine Aged Out No brian jalil eligible based on patient's age to complete this topic Pneumococcal Vaccine: Pediatrics (0 to 5 Years) and At-Risk Patients (6 to 49 Years) Aged Out No longer eligible based [...] Most Recently Relevant to Health Maintenance Insurance [facility] Care Teams Marine Pipefitter Helper Relationship Specialty Start Date End Date Reese Pollack MD [address] [place] [phone] PCP - General FAMILY PRACTICE 02/06/20
== END 2024-08-26 16:58 | disposition home or self-care (01) ==
PROVIDERS: PCP Physician Assistant; Visit Provider Physician Assistant
DX: R59.0 Localized enlarged lymph nodes (principal); J32.0 Chronic maxillary sinusitis
CPT/HCPCS: 70491; Q9967

== ENCOUNTER 2024-09-20 15:33 | Emergency (ER) | payer OTHER, SELFPAY ==
--- NOTE | ~2024-09-20 | CT_ITS ---
CT soft tissue neck chest w Ordering provider: Yogi Guerrero MD History: 58 years Male with . Rt. side neck pain/ swelling/ dyspnea x1mo; worsening . Comparison: None. Technique: CT soft tissues neck and chest was performed with contrast. Radiation reduction technique utilized.The dose-length product was 1121.31 mGy-cm. 100 mL Omnipaque 3 50 was given IV. Findings: NECK: LOWER HEAD: The visualized brain parenchyma, optic globes/orbits and mastoids are normal. The visua lized paranasal sinuses are well aerated. Right nasal septal deviation. SALIVARY GLANDS: Normal. THYROID: Normal. DEEP SPACES: Lymphadenopathy is seen in the right side of the neck in all neck spaces with the larges t seen at the level of the larynx which measures 1.4 x 2.7 cm with surrounding fat stranding. This ar ea is involving the right internal jugular vein which appears to be thrombosed or unopacified. Mass c annot be excluded. The largest lymph node in the right posterior triangle measures 1.4 x 1 cm. and 1.1 x 1.2 cm. The lar gest lymph node in the right parapharyngeal space measures 2.4 x 3.1 cm. Enlarged lymph nodes are als o seen in the right supraclavicular area. CAROTID ARTERIES: Normal. Direct origin of the left vertebral artery from the aorta. JUGULAR VEINS: Thrombosed. TONSILS: calcifications in the left. Narrowing of the oropharynx is noted. ORAL CAVITY: normal as visualized. PHARYNX, LARYNX AND TRACHEA: Narrowing of the oropharynx at the level of the tonsils. ,Patent and nor mal. No prevertebral soft tissue swelling. SUPERFICIAL SOFT TISSUES: A lymphadenopathy in the right side of the neck from the supraclavicular ar ea to the base of the skull. Lymphadenopathy also seen in the right axilla. THORACIC INLET/VISUALIZED UPPER CHEST: Normal. SKELETAL: S-shaped scoliosis. Age appropriate degenerative changes. CHEST: MEDIASTINUM: Aorta: The thoracic aorta is normal. Coronary arteries: Normal. Heart/other: The heart is not enlarged. Lymph nodes: No mediastinal or hilar adenopathy. LUNGS: Tree-in-bud appearance is seen in the right upper lobe near to the interlobar fissure which ma y indicate post infection changes. No pulmonary nodules or masses. No effusions. No pneumothorax. VISUALIZED UPPER ABDOMEN: Small cyst in the right kidney upper pole. Left adrenal adenoma measuring 2 .4 x 1.6 cm. Sliding hiatus hernia. Otherwise, the visualized upper abdomen is normal. MUSCULOSKELETAL: Soft tissues: The superficial soft tissues are normal. Bones: Age appropriate degenerative changes of the spine. S-shaped scoliosis. IMPRESSION: Lymphadenopathy in the right side of the neck as described above. Lymphadenopathy in the right axilla ry area. Differential include lymphoma. Etiology likely infection is not excluded. Further evaluation advised. Highly suggestive thrombosed right jugular vein. Post infection changes in the right upper lobe with tree-in-bud appearance. Narrowing of the oropharynx at the level of the tonsils. S-shaped scoliosis. Left adrenal adenoma. Metastatic lesion cannot be excluded. Clinical correlation and further evaluati on advised. Sliding hiatus hernia. Reviewed, dictated and finalized at location A. IMPRESSION: Lymphadenopathy in the right side of the neck as described above. Lymphadenopat hy in the right axillary area. Differential include lymphoma. Etiology likely infection is not excluded. Further evaluation advised. Highly suggestive thrombosed right jugular vein. Post infection changes in the right upper lobe with tree-in-bud appearance. Narrowing of the oropharynx at the level of the tonsils. S-shaped scoliosis. Left adrenal adenoma. Metastatic lesion cannot be excluded. Clinical correlatio n and further evaluation advised. Sliding hiatus hernia.
--- OUTSIDE RECORDS SUMMARY | 2024-09-20 15:35 | XMS_ITS | Clinical Summary ---
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
--- OUTSIDE RECORDS SUMMARY | 2024-09-20 15:35 | XMS_ITS | Encounter Summary ---
Author Organization [facility] - [facility] Address [facility] [place] [address] Care Team Providers Care Stitch Separator Name Role Phone None, Provider Primary Care Provider Reese Talamantes MD Primary Care Provider Encounter Details Date Type Department Care Team (Late st Contact Info) Description 10/20/2018 Abstract [facility] CONVERSION [address] [place] [address] , Generic Conversion, Social History Tobacco Use Types Packs/Day Years Used Date Smoking Tobacco: Never Assessed Sex and Gender Information Value Date Recorded Sex Assigned at Not on file 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 Gender Identity Not on file Sexual Orientation Not on file documented as of this encounter Plan of Treatment Not on file documented as of this encounter Visit Diagnoses Not on filedocumented in this encounter Additional Health Concerns Infection Onset Date Last Indicated Resolved Time COVID-19 Rule Out 02/15/2020 02/15/2020 02/17/2020 6:00 AM CDT documented as of this encounter Care Teams Stitch Separator Relationship Specialty Start Date End Date None, Provider, PCP - General 01/28/20 02/05/20 Reese Pollack MD [address] [place] [phone] PCP - General FAMILY PRACTICE 02/06/20 documented as of this encounter
[2024-09-20 15:39] VITALS: BP 150/89; PULSE 76; RESP 18; TEMP 36.6; O2SAT 97
--- NOTE | 2024-09-20 15:48 | ED_ITS ---
HPI - Neck Pain/Injury General Chief Complaint: Unspecified Stated Complaint: facial swelling right face Source: patient Mode of arrival: ambulatory Limitations: no limitations History of Present Illness HPI Narrative: Patient is a 58-year-old male with a right neck lymph node enlargement over the past few months. He has been to the emergency room and they put him on antibiotics and did a CT scan. Further he saw the ENT and they continued antibiotics. He is having growth and worsening pain of the right neck lymph nodes. MD complaint: neck pain ( Right neck lymphadenopathy known but getting worse) Onset (ago): month(s) ( 2-3) Place: home Radiation: right lateral ( neck) Severity: moderate Severity scale (1-10): 5 Quality: sharp and stabbing Duration: constant Relieving factors: other ( antibiotics on 2 different courses) Exacerbating factors: none Context: other ( patient has worsening right neck lymphadenopathy with no particular reasoning of onset 2-3 months ago.) Associated symptoms: swollen glands Treatments prior to arrival: other ( Two different antibiotics given without relief or change) Related Data Allergies Allergy/AdvReac Type Severity Reaction Status Date / Time No Known Allergies Allergy Verified 09/20/24 17:41 Review of Systems 2 Review of Systems: All systems reviewed & are unremarkable except as noted in HPI and below Constitutional: Constitutional: Reports no additional constitutional complaints Eyes: Eyes: Reports no additional eye complaints ENT: Reports system reviewed and no additional complaints, except as documented Cardiovascular: Cardiovascular: Reports no additional cardiovascular complaints Respiratory: Respiratory: Reports no additional respiratory complaints Gastrointestinal: Gastrointestinal: Reports no additional gastrointestinal complaints Genitourinary: Genitourinary: Reports no additional male genitourinary complaints Musculoskeletal: Musculoskeletal: Reports no additional musculoskeletal complaints Integumentary/Breasts: Skin/Breast: Reports system reviewed and no additional complaints, except as docu Neurologic: Reports system reviewed and no additional complaints, except as documented Psychiatric: Psychiatric: Reports no additional psychiatric complaints Endocrine: Endocrine: Reports no additional endocrine complaints Hematologic/Lymphatic: Hematologic/Lymphatic: Reports no additional hematologic/lymphatic complaints Allergic/Immunologic: Allergic/Immunologic: Reports no additional allergic/immunologic complaints Exam 2 Const: General: healthy appearing Nutritional Appearance: well nourished Orientation/consciousness: patient oriented x3 Limitations: no limitations HENMT: Head: normal to inspection Ears: external ears normal F fito/Nose/Sinus: Normal external nose present Eyes: Conjunctivae: conjunctivae normal Pupils: Equal, round and reactive pupils present EOM: EOMs intact bilaterally Neck: Neck: normal visual inspection Other: right neck has multiple nodular lymph nodes which are tender to palpation; they have increased in size and amounts of them over the past 2-3 months Chest: Chest palpation & inspection: normal inspection of the chest Resp: Effort & Inspection: normal respiratory effort and not labored A uscultation: clear to auscultation bilaterally and no crackles Cardio: Rate: regular rate Rhythm: regular rhythm Heart sounds: no murmurs GI: Inspection: non-distended GI Palp: Yes Soft to palpation and No Tenderness to palpation present (GI) Auscultation: normal bowel sounds : General: Yes bladder normal to palpation Back/Spine/Pelvis: Back: no CVA tenderness Skin: General skin exam: normal color Rashes: no rashes Wounds: no wounds Neuro: General: patient oriented x3 Cranial nerves: Yes Nystagmus not present Speech: normal speech Gait exam (Neuro): Normal gait present Extrem: General: normal to inspection Psych: Mental Status: mental status grossly normal Affect: normal affect Attitude: cooperative Course Vital Signs Vital signs: Vital Signs Temperature 36.6 C 09/20/24 15:39 Pulse Rate 76 09/20/24 15:39 Respiratory Rate 18 09/20/24 15:39 Blood Pressure 150/89 H 09/20/24 15:39 Pulse Oximetry 97 09/20/24 15:39 Oxygen Delivery Room Air 09/20/24 15:39 Temperature 36.6 C 09/20/24 15:39 Pulse Rate 59 L 09/20/24 18:05 Respiratory Rate 18 09/20/24 18:05 Blood Pressure 124/70 09/20/24 18:05 Pulse Oximetry 98 09/20/24 18:05 Oxygen Delivery Room Air 09/20/24 18:05 MDM - Neck Pain/Injury MDM Narrative Medical decision making narrative: patient is a 58-year-old male with a right neck lymphadenopathy getting worse even after ENT has been seen with antibiotics given; it would do a CT scan of the neck with contrast and check labs. I did that a thorough background history with the patient and he does not have a cat that may have given him has given cat scratch disease. We will transfer patient for higher level medical care and evaluation of the right neck masses. Lab Data Attestation: I reviewed the patient's lab results. 09/20/24 16:10 09/20/24 16:10 Labs: Lab Results 09/20/24 Range/Units 16:10 WBC 6.8 (4.8-10.8) K/mm3 RBC 4.37 L (4.70-6.10) M/mm3 Hgb 12.4 L (14.0-18.0) g/dL Hct 38.9 L (40.0-54.0) % MCV 89.0 (78.0-102.0) fL MCH 28.4 (27.0-31.0) pg MCHC 31.9 L (32-36) g/dL RDW 12.3 (11.6-14.4) % Plt Count 246 (150-420) K/mm3 MPV 10.1 (8.7-11.0) fl Immature Gran % (Auto) 0.7 H (0.0-0.0) % Neut % (Auto) 72.4 H (50.0-70.0) % Lymph % (Auto) 16.8 L (18.0-42.0) % Mcdowell % (Auto) 8.5 (2.0-11.0) % Eos % (Auto) 1.3 (1.0-6.0) % Baso % (Auto) 0.3 (0.0-1.0) % Lymph # (Auto) 1.15 (1.10-4.50) K/mm3 Mcdowell # (Auto) 0.58 (0.10-0.90) K/mm3 Eos # (Auto) 0.09 (0.02-0.50) K/mm3 Baso # (Auto) 0.02 (0.00-0.10) K/mm3 Abs Immat Gran (auto) 0.05 H (0.00-0.00) K/mm3 Absolute Neuts (auto) 4.94 (1.70-7.20) K/mm3 Absolute Nucleated RBC 0.00 (0.00-0.00) K/mm3 Nucleated RBC % 0.0 (0-0.0) % Sodium 141 (137-145) mmol/L Potassium 3.6 (3.4-5.0) mmol/L Chloride 109 H (98-107) mmol/L Carbon Dioxide 29 (22-30) mmol/L Anion Gap 3 L (4-12) mmol/L BUN 21 H (9-20) mg/dL Creatinine 0.90 (0.7-1.3) mg/dL Estim Creat Clear Calc 80 ml/min Estimated GFR > 60 (59 - ) Glucose 120 H (65-110) mg/dL Calculated Osmolality 296 H (285-295) mOsm/kg Lactic Acid 1.6 (0.4-2.0) mmol/L Calcium 8.9 (8.4-10.2) mg/dL Total Bilirubin 0.3 (0.2-1.3) mg/dL AST 21 (17-59) U/L ALT 16 (6-50) U/L Alkaline Phosphatase 73 (38-126) U/L Total Protein 6.4 (6.3-8.2) g/dL Albumin 4.0 (3.5-5.1) g/dL Group A Strep (PCR) Not detected (Negative) Imaging Data Attestation: I personally reviewed and interpreted this imaging study as follows: Radiologist's impression: CT scan of the soft tissue neck and chest with contrast shows IMPRESSION: Lymphadenopathy in the right side of the neck as described above. Lymphadenopathy in the right axillary area. Differential include lymphoma. Etiology likely infection is not excluded. Further evaluation advised. Highly suggestive thrombosed right jugular vein. Post infection changes in the right upper lobe with tree-in-bud appearance. Narrowing of the oropharynx at the level of the tonsils. S-shaped scoliosis. Left adrenal adenoma. Metastatic lesion cannot be excluded. Clinical correlation and further evaluation advised. Sliding hiatus hernia. Discharge Plan Discharge Clinical Impression: Mass of right side of neck, Jugular vein thrombosis Patient Disposition: Acute Care Hospital Condition: Stable Patient Language: Spanish Prescriptions: No Action doxycycline hyclate 100 mg tablet 100 mg PO BID Qty: 20 0RF prednisone 20 mg tablet 40 mg PO DAILY 5 Days Qty: 10 0RF albuterol sulfate [Ventolin HFA] 90 mcg/actuation HFA aerosol inhaler 2 puff inhalation QID PRN (Reason: shortness of breath or wheezing) Qty: 8.5 0RF Follow-up/Referrals: Hamzah Manuel DO [Physician] - Time of Disposition: 21:06
[2024-09-20 16:14] LABS: Basophils Absolute Auto 0.02 K/mm3 (0.00-0.10); Basophils Percent Auto 0.3 % (0.0-1.0); Eosinophils Absolute Auto 0.09 K/mm3 (0.02-0.50); Eosinophils Percent Auto 1.3 % (1.0-6.0); Hematocrit 38.9 % (40.0-54.0); Hemoglobin 12.4 g/dL (14.0-18.0); Immature Granulocyte Absolute 0.05 K/mm3 (0.00-0.00); Immature Granulocyte Percent A 0.7 % (0.0-0.0); Lymphocytes Absolute Auto 1.15 K/mm3 (1.10-4.50); Lymphocytes Percent Auto 16.8 % (18.0-42.0); Mean Corpuscular HGB Conc 31.9 g/dL (32-36); Mean Corpuscular Hemoglobin 28.4 pg (27.0-31.0); Mean Platelet Volume 10.1 fl (8.7-11.0); Monocytes Absolute Auto 0.58 K/mm3 (0.10-0.90); Monocytes Percent Auto 8.5 % (2.0-11.0); Neutrophils Absolute Auto 4.94 K/mm3 (1.70-7.20); Neutrophils Percent Auto 72.4 % (50.0-70.0); Platelet Count Result 246 K/mm3 (150-420); Red Blood Count 4.37 M/mm3 (4.70-6.10); Red Cell Distribution Width 12.3 % (11.6-14.4); White Blood Count 6.8 K/mm3 (4.8-10.8)
--- OUTSIDE RECORDS SUMMARY | 2024-09-20 16:22 | XMS_ITS | Clinical Summary ---
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
--- OUTSIDE RECORDS SUMMARY | 2024-09-20 16:23 | XMS_ITS | Encounter Summary ---
Author Organization 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 Gender Identity Not on file Sexual Orientation Not on file documented as of this encounter Plan of Treatment Not on file documented as of this encounter Visit Diagnoses Not on filedocumented in this encounter Additional Health Concerns Infection Onset Date Last Indicated Resolved Time COVID-19 Rule Out 02/15/2020 02/15/2020 02/17/2020 6:00 AM CDT documented as of this encounter Care Teams Freelance Programmer/App Developer Relationship Specialty Start Date End Date None, Provider, PCP - General 01/28/20 02/05/20 Reese Pollack MD [address] [place] [phone] PCP - General FAMILY PRACTICE 02/06/20 documented as of this encounter
[2024-09-20 16:31] LABS: Alanine Aminotransferase 16 U/L (6-50); Alkaline Phosphatase 73 U/L (38-126); Anion Gap 3 mmol/L (4-12); Aspartate Amino Transferase 21 U/L (17-59); Bilirubin,Total 0.3 mg/dL (0.2-1.3); Blood Urea Nitrogen 21 mg/dL (9-20); Calcium 8.9 mg/dL (8.4-10.2); Carbon Dioxide 29 mmol/L (22-30); Chloride 109 mmol/L (98-107); Estimated CRCL calculation 80 ml/min; Estimated Glomerular Filt Rate > 60; Glucose 120 mg/dL (65-110); Osmolality Calculated 296 mOsm/kg (285-295); Potassium 3.6 mmol/L (3.4-5.0); Sodium 141 mmol/L (137-145); Total Protein 6.4 g/dL (6.3-8.2)
[2024-09-20 16:37] LABS: Strep Group A RT-PCR NOT DETECTED (Negative)
[2024-09-20 16:38] LABS: Lactic Acid Reflex 1.6 mmol/L (0.4-2.0)
--- NOTE | 2024-09-20 16:52 | PC.NURSE ---
pt to xray department for ct.
[2024-09-20 18:05] VITALS: BP 124/70; PULSE 59; RESP 18; O2SAT 98
--- NOTE | 2024-09-20 18:29 | PC.NURSE ---
dr arauz in with pt and discussing ct scan of neck and plan of care.
--- NOTE | 2024-09-20 19:04 | PC.NURSE ---
report to hui avelar
[2024-09-20 21:48] VITALS: BP 136/77; PULSE 73; RESP 18; TEMP 36.2; O2SAT 98
--- NOTE | 2024-09-20 22:04 | ED.GENADULT ---
HPI - General Adult General Chief complaint: Unspecified Stated complaint: facial swelling right face Source: patient Mode of arrival: ambulatory Limitations: no limitations History of Present Illness Severity scale (1-10): 5 Related Data Allergies Allergy/AdvReac Type Severity Reaction Status Date / Time No Known Allergies Allergy Verified 09/20/24 17:41 Course Vital Signs Vital signs: Vital Signs Temperature 36.6 C 09/20/24 15:39 Pulse Rate 76 09/20/24 15:39 Respiratory Rate 18 09/20/24 15:39 Blood Pressure 150/89 H 09/20/24 15:39 Pulse Oximetry 97 09/20/24 15:39 Oxygen Delivery Room Air 09/20/24 15:39 Temperature 36.2 C L 09/20/24 21:48 Pulse Rate 73 09/20/24 21:48 Respiratory Rate 18 09/20/24 21:48 Blood Pressure 136/77 09/20/24 21:48 Pulse Oximetry 98 09/20/24 21:48 Oxygen Delivery Room Air 09/20/24 21:48 Medical Decision Making Vital Signs Vital Signs: Vital Signs Temperature 36.6 C 09/20/24 15:39 Pulse Rate 76 09/20/24 15:39 Respiratory Rate 18 09/20/24 15:39 Blood Pressure 150/89 H 09/20/24 15:39 Pulse Oximetry 97 09/20/24 15:39 Oxygen Delivery Room Air 09/20/24 15:39 Temperature 36.2 C L 09/20/24 21:48 Pulse Rate 73 09/20/24 21:48 Respiratory Rate 18 09/20/24 21:48 Blood Pressure 136/77 09/20/24 21:48 Pulse Oximetry 98 09/20/24 21:48 Oxygen Delivery Room Air 09/20/24 21:48 Lab Data 09/20/24 16:10 09/20/24 16:10 Labs: Lab Results 09/20/24 Range/Units 16:10 WBC 6.8 (4.8-10.8) K/mm3 RBC 4.37 L (4.70-6.10) M/mm3 Hgb 12.4 L (14.0-18.0) g/dL Hct 38.9 L (40.0-54.0) % MCV 89.0 (78.0-102.0) fL MCH 28.4 (27.0-31.0) pg MCHC 31.9 L (32-36) g/dL RDW 12.3 (11.6-14.4) % Plt Count 246 (150-420) K/mm3 MPV 10.1 (8.7-11.0) fl Immature Gran % (Auto) 0.7 H (0.0-0.0) % Neut % (Auto) 72.4 H (50.0-70.0) % Lymph % (Auto) 16.8 L (18.0-42.0) % [place] % (Auto) 8.5 (2.0-11.0) % Eos % (Auto) 1.3 (1.0-6.0) % Baso % (Auto) 0.3 (0.0-1.0) % Lymph # (Auto) 1.15 (1.10-4.50) K/mm3 [place] # (Auto) 0.58 (0.10-0.90) K/mm3 Eos # (Auto) 0.09 (0.02-0.50) K/mm3 Baso # (Auto) 0.02 (0.00-0.10) K/mm3 Abs Immat Gran (auto) 0.05 H (0.00-0.00) K/mm3 Absolute Neuts (auto) 4.94 (1.70-7.20) K/mm3 Absolute Nucleated RBC 0.00 (0.00-0.00) K/mm3 Nucleated RBC % 0.0 (0-0.0) % Sodium 141 (137-145) mmol/L Potassium 3.6 (3.4-5.0) mmol/L Chloride 109 H (98-107) mmol/L Carbon Dioxide 29 (22-30) mmol/L Anion Gap 3 L (4-12) mmol/L BUN 21 H (9-20) mg/dL Creatinine 0.90 (0.7-1.3) mg/dL Estim Creat Clear Calc 80 ml/min Estimated GFR > 60 (59 - ) Glucose 120 H (65-110) mg/dL Calculated Osmolality 296 H (285-295) mOsm/kg Lactic Acid 1.6 (0.4-2.0) mmol/L Calcium 8.9 (8.4-10.2) mg/dL Total Bilirubin 0.3 (0.2-1.3) mg/dL AST 21 (17-59) U/L ALT 16 (6-50) U/L Alkaline Phosphatase 73 (38-126) U/L Total Protein 6.4 (6.3-8.2) g/dL Albumin 4.0 (3.5-5.1) g/dL Group A Strep (PCR) Not detected (Negative) Discharge Plan Discharge Clinical Impression: Mass of right side of neck, Jugular vein thrombosis Patient Disposition: Acute Care Hospital Condition: Stable Patient Language: Citizen Of [place] Prescriptions: No Action doxycycline hyclate 100 mg tablet 100 mg PO BID Qty: 20 0RF prednisone 20 mg tablet 40 mg PO DAILY 5 Days Qty: 10 0RF albuterol sulfate [Ventolin HFA] 90 mcg/actuation HFA aerosol inhaler 2 puff inhalation QID PRN (Reason: shortness of breath or wheezing) Qty: 8.5 0RF Follow-up/Referrals: Hamzah Manuel DO [Physician] - Time of Disposition: 21:06
--- NOTE | 2024-09-23 14:22 | PC.NURSE ---
preliminary blood culture, no growth.
== END 2024-09-20 23:31 | disposition short-term general hospital (02) ==
PROVIDERS: Emergency Provider Emergency Medicine; PCP Physician Assistant
DX: I82.C19 Acute embolism and thrombosis of unspecified internal jugular vein (principal)
CPT/HCPCS: 36415; 70491; 71260; 80053; 83605; 85025; 87040; 87651; 99285; Q9967

== ENCOUNTER 2025-04-28 08:17 | Emergency (ER) | payer OTHER, SELFPAY ==
[2025-04-28] VITALS (9 sets, daily range): BP systolic 103–125; BP diastolic 58–72; PULSE 65–98; RESP 16–20; TEMP 37.5–37.7; O2SAT 95–98
--- NOTE | 2025-04-28 | CONSULT_PTH ---
PATIENT: Emory Otero LOC: [facility] U#:[id number] AGE/SX: 59/M ROOM: RE04/28/[address]: Dave Taveras MD : [id number] BED: DIS: 04/28/2025 SPEC #: [id number] RECD: 04/28/25 09:13 STATUS: ENT REQ #: [id number] SUSY: 04/28/25 00:[address]: Dave Taveras DEPT: [facility] Consult RECD BY: Georgiana Marc MLT, ([facility]) Tissues: A - Peripheral Smear Procedures: Hematology Consult
--- NOTE | ~2025-04-28 | XR_ITS ---
EXAMINATION: XR chest 1V portable COMPARISON: No comparisons available. HISTORY: fever FINDINGS: The lungs are clear, no effusion. No pneumothorax. Heart is normal size. Mediastinal and hilar contours are within normal limits. Bony thorax no acute abnormality. Miscellaneous: None Impression: No acute cardiopulmonary abnormality. Reviewed, dictated and finalized at location P. 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
--- NOTE | 2025-04-28 08:32 | ED.GENADULT ---
HPI - General Adult General Chief complaint: Fever Stated complaint: fever Time Seen by Provider: 04/28/25 08:28 Source: patient Mode of arrival: ambulatory Limitations: no limitations History of Present Illness HPI narrative: 59 years old white male came to the ED by private car from home complaining of fever for the last 6 days, 101 -104. Associated with chills, body aches and general weakness. He denies any runny nose, sneezing, coughing, sore throat, ear aches, abdominal pain, back pain, chest pain or coughing. Patient denies sick contact. History of non-Hodgkin lymphoma, last chemotherapy was January 09, 2025. Patient is healthy otherwise. Related Data Allergies Allergy/AdvReac Type Severity Reaction Status Date / Time No Known Allergies Allergy Verified 04/28/25 08:19 Review of Systems Review of Systems: All systems reviewed & are unremarkable except as noted in HPI and below Exam Narrative: General appearance: Well-developed, well-nourished Skin: Normal color Head: Normocephalic, nontraumatic Eyes: Clear conjunctiva ENT: Oropharynx normal, ears normal, nose normal Neck: Supple, nontender Chest and respiratory: Airway patent, no respiratory distress, no accessory muscle use Heart: Regular rate/rhythm Abdomen: Soft, nontender, no organomegaly, quiet bowel sounds Musculoskeletal: Normal range of motion, nontender back Neurologic: Alert and oriented ?3, [employer] is normal as tested, no gross motor deficit Course Vital Signs Vital signs: Vital Signs Temperature 37.5 C 04/28/25 08:17 Pulse Rate 98 04/28/25 08:17 Respiratory Rate 20 04/28/25 08:17 Blood Pressure 124/70 04/28/25 08:17 Pulse Oximetry 96 04/28/25 08:17 Oxygen Delivery Room Air 04/28/25 08:17 Temperature 37.7 C H 04/28/25 09:45 Pulse Rate 98 04/28/25 08:17 Respiratory Rate 20 04/28/25 08:17 Blood Pressure 124/70 04/28/25 08:17 Pulse Oximetry 96 04/28/25 08:17 Oxygen Delivery Room Air 04/28/25 08:17 MDM MDM Narrative Medical decision making narrative: Patient presents with fever for the last 6 days Vital signs stable, no fever, last Tylenol intake was 12 hours ago. Physical examination: Insignificant Differential diagnosis viral syndrome, urinary tract infection, pneumonia, electrolyte imbalance, dehydration Blood workup today includes CBC, CMP, blood culture, CRP showed WBC 3.1, platelet 92, C-reactive protein 7.3, Urinalysis showed 2+ blood, cloudy Patient tested negative for COVID flu and RSV Chest x-ray showed no significant abnormalities Diagnosis viral syndrome, hematuria My plan to discharge patient on Levaquin for possible urinary tract infection inducing hematuria. The pt was discharged to home.the pt,s condition upon discharge was fair,education was provided to the pt in reference to the final impression,discharge study results,treatment,prognosis and need for follow up . Differential Diagnosis Differential Diagnosis: As above Medical Records I have reviewed the following patient records and this information was taken into consideration when formulating the assessment and plan.: previous labs and previous ER visits Lab Data MDM Lab Attestation statement: I personally reviewed the patient's lab results. 04/28/25 08:42 04/28/25 08:42 Labs: Lab Results 04/28/25 04/28/25 04/28/25 Range/Units 08:42 08:48 10:13 WBC 3.1 L (4.8-10.8) K/mm3 RBC 4.83 (4.70-6.10) M/mm3 Hgb 14.0 (14.0-18.0) g/dL Hct 42.3 (40.0-54.0) % MCV 87.6 (78.0-102.0) fL MCH 29.0 (27.0-31.0) pg MCHC 33.1 (32-36) g/dL RDW 12.8 (11.6-14.4) % Plt Count 92 L (150-420) K/mm3 MPV 11.1 H (8.7-11.0) fl Immature Gran % (Auto) Not Reportable Neut % (Auto) Not Reportable Lymph % (Auto) Not Reportable [place] % (Auto) Not Reportable Eos % (Auto) Not Reportable Baso % (Auto) Not Reportable Lymph # (Auto) Not Reportable [place] # (Auto) Not Reportable Eos # (Auto) Not Reportable Baso # (Auto) Not Reportable Abs Immat Gran (auto) Not Reportable Absolute Neuts (auto) Not Reportable Absolute Nucleated RBC Not Reportable Total Counted 100 Neutrophils % (Manual) 64 (46-73) % Band Neutrophils % 5 (0-6) % Lymphocytes % (Manual) 14 L (18-44) % Monocytes % (Manual) 17 H (3-9) % Nucleated RBC % Not Reportable Abs Neuts (Manual) 2.13 (1.3-6.7) K/mm3 Abs Lymphs (Manual) 0.43 L (1.1-4.5) K/mm3 Abs Monocytes (Manual) 0.52 (0.1-0.90) K/mm3 Platelet Estimate Decreased (Adequate) % Immature Plt Fraction 6.9 (1.0-7.0) % Schistocytes Not Reportable Sodium 134 L (137-145) mmol/L Potassium 3.7 (3.4-5.0) mmol/L Chloride 100 (98-107) mmol/L Carbon Dioxide 27 (22-30) mmol/L Anion Gap 7 (4-12) mmol/L BUN 18 (9-20) mg/dL Creatinine 1.12 (0.7-1.3) mg/dL Estim Creat Clear Calc 65 ml/min Estimated GFR > 60 (59 - ) Glucose 119 H (65-110) mg/dL Calculated Osmolality 280 L (285-295) mOsm/kg Lactic Acid 1.3 (0.7-2.0) mmol/L Calcium 8.7 (8.4-10.2) mg/dL Total Bilirubin 0.7 (0.2-1.3) mg/dL AST 44 (17-59) U/L ALT 42 (6-50) U/L Alkaline Phosphatase 56 (38-126) U/L C-Reactive Protein 7.3 H (<1.0) mg/dL Total Protein 6.7 (6.3-8.2) g/dL Albumin 4.4 (3.5-5.1) g/dL Urine Color Dark yellow (Yellow) Urine Appearance Sl cloudy A (Clear) Urine pH 5.5 (5.0-8.0) Ur Specific [place] >= 1.030 H (1.010-1.020) Urine Protein 2+ H (Negative) Urine Glucose (UA) Trace H (Negative) Urine Ketones Trace H (Negative) Ur Blood (Man) 2+ H (Negative) Urine Nitrate Negative (Negative) Urine Bilirubin 2+ H (Negative) Urine Urobilinogen 1.0 (0.2-1.0) mg/dL Leukocyte Esterase Rfl Negative (Negative) YVAN/UL Urine RBC 51-75 H (0-2) /hpf Urine WBC 4-6 H (0-3) /hpf Ur Transition Epith Cell Many A (None) /hpf Cellular Casts Present H (None) /lpf Urine Mucus Moderate H /lpf Influenza A (RT-PCR) Negative (Negative) Influenza B (RT-PCR) Negative (Negative) RSV (RT-PCR) Negative (Negative) SARS-CoV-2 RNA (RT-PCR) Negative (Negative) Imaging Data Radiologist's impression: ITS Impressions Chest X-Ray 04/28/25 08:57 Impression: No acute cardiopulmonary abnormality. Critical Care Time Critical Care Time Time Type: Intermittent Documenting medical record: 5 minutes Review of results (EKG's, labs, imaging): 5 minutes Total Critical Care Time: 10 Discharge Plan Discharge Clinical Impression: Viral syndrome, Thrombocytopenia, Hematuria Patient Disposition: Home Condition: Stable Instructions: Antibiotic Form, Hematuria (ED), Viral Syndrome (ED), Thrombocytopenia (ED) Additional Instructions: Return if symptoms are worsening , call your family physician for appointment, take Tylenol as as needed for aches and pain, continue home medications. Patient Language: [place] Prescriptions: New levofloxacin 500 mg tablet 500 mg PO DAILY Qty: 7 0RF No Action doxycycline hyclate 100 mg tablet 100 mg PO BID Qty: 20 0RF prednisone 20 mg tablet 40 mg PO DAILY 5 Days Qty: 10 0RF albuterol sulfate [Ventolin HFA] 90 mcg/actuation HFA aerosol inhaler 2 puff inhalation QID PRN (Reason: shortness of breath or wheezing) Qty: 8.5 0RF Follow-up/Referrals: UNKNOWN,DOCTOR [Non-Staff]
[2025-04-28 08:55] LABS: Hematocrit 42.3 % (40.0-54.0); Hemoglobin 14.0 g/dL (14.0-18.0); Immature Platelet Fraction Pct 6.9 % (1.0-7.0); Mean Corpuscular HGB Conc 33.1 g/dL (32-36); Mean Corpuscular Hemoglobin 29.0 pg (27.0-31.0); Mean Corpuscular Volume 87.6 fL (78.0-102.0); Platelet Count Result 92 K/mm3 (150-420); Red Blood Count 4.83 M/mm3 (4.70-6.10); White Blood Count 3.1 K/mm3 (4.8-10.8)
[2025-04-28 09:11] LABS: Band Neutrophils Percent 5 % (0-6); Lymphocytes Absolute Manual 0.43 K/mm3 (1.1-4.5); Lymphocytes Percent Manual 14 % (18-44); Monocytes Absolute Manual 0.52 K/mm3 (0.1-0.90); Monocytes Percent Manual 17 % (3-9); Neutrophils Absolute Manual 2.13 K/mm3 (1.3-6.7); Neutrophils Percent Manual 64 % (46-73); Total Cells Counted 100
[2025-04-28 09:14] LABS: Alanine Aminotransferase 42 U/L (6-50); Albumin Level 4.4 g/dL (3.5-5.1); Alkaline Phosphatase 56 U/L (38-126); Anion Gap 7 mmol/L (4-12); Aspartate Amino Transferase 44 U/L (17-59); Bilirubin,Total 0.7 mg/dL (0.2-1.3); Blood Urea Nitrogen 18 mg/dL (9-20); CRP 7.3 mg/dL (<1.0); Calcium 8.7 mg/dL (8.4-10.2); Carbon Dioxide 27 mmol/L (22-30); Chloride 100 mmol/L (98-107); Estimated CRCL calculation 65 ml/min; Estimated Glomerular Filt Rate > 60; Glucose 119 mg/dL (65-110); Osmolality Calculated 280 mOsm/kg (285-295); Potassium 3.7 mmol/L (3.4-5.0); Sodium 134 mmol/L (137-145); Total Protein 6.7 g/dL (6.3-8.2)
[2025-04-28 09:32] LABS: Influenza A QL RT-PCR Negative (Negative); Influenza B QL RT-PCR Negative (Negative); RSV RNA, RT-PCR Negative (Negative); SARS-CoV-2 RNA PCR Negative (Negative)
[2025-04-28 10:24] LABS: Add Urine Microscopic? YES; Appearance Urine Sl Cloudy (Clear); Glucose Urine UA Trace (Negative); Leukocyte Esterase Ur Negative LEU/UL (Negative); Nitrate Urine Negative (Negative); Specific Grav Ur >= 1.030 (1.010-1.020)
[2025-04-28 10:35] LABS: Cellular Casts Urine Present /lpf
== END 2025-04-28 11:17 | disposition home or self-care (01) ==
PROVIDERS: Emergency Provider Emergency Medicine
DX: B34.9 Viral infection, unspecified (principal); D69.6 Thrombocytopenia, unspecified; R31.9 Hematuria, unspecified; Z85.72 Personal history of non-Hodgkin lymphomas; Z20.822 Contact with and (suspected) exposure to COVID-19
CPT/HCPCS: 36415; 71045; 80053; 81001; 83605; 85025; 85055; 86140; 87637; 99283